=== PATIENT | male | born 1960 | race Caucasian/White ===

== ENCOUNTER → 2017-06-11 | Day surgery (SDC) | payer OTHER ==
[~2017-06-11] VITALS: Ht 175.3 cm; Wt 74.8 kg
[~2017-06-11] MED LIST: ASPIRIN EC81 M1 PO; ATORVASTATIN CA40 MG PO; ECOTRIN81 MG PO; FINASTERIDE5 M1 PO; FISH OIL 1,0001 EAC3 PO; FLOMAX0.4 M1 PO; GABAPENTIN300 M2 PO; GLUCOPHAGE1000 M1 PO; HUMALOG100 UNIT/1 SC; JANUMET 1000 MG1 TAB PO; JANUVIA100 M1 PO; LANTUS SOL100 UNIT/1 SC; LANTUS SOLOS100 U/ML SC; LIPITOR80 M1 PO; LISINOPRIL2.5 MG PO; NEURONTIN300 MG PO; NOVOLOG100 U/ML SC; PROS5 PO; TAMSULOSIN HYD0.4 MG PO; TOPROL XL50 M1 PO
--- NOTE | 2017-06-11 13:07 | Operative Report ---
Operative/Inv Procedure Report Surgery Date: 06/11/17 Name of Procedure: Cataract extraction with intraocular lens implantation left eye Pre-Operative Diagnosis: Age-related cataract left eye Post-Operative Diagnosis: Same Estimated Blood Loss: none Surgeon/Application Architect: Eder ALVES,Cristino Thorne Anesthesia: local monitored anesthesi Complications: None Operative/Procedure Note Note: Preoperatively the patient was noted to have 20/50 vision in the left eye . The risks, benefits, and alternatives to surgery were discussed at length with the patient. Informed consent was obtained. The patient was brought to the operating room where the left eye was prepped and draped in the normal sterile fashion. A speculum was placed on the left eye with good exposure. The axis of the limbal relaxing incision was marked. Using a wendy blade at 600 depth, an incision spanning 45 degrees was made without complication. A limbal relaxing incision of equal length and depth was made 180 away. A stab incision was made using a paracentesis blade. Intracameral lidocaine was placed. Viscoelastic was used to form the anterior chamber. A clear corneal incision was made using keratome blade. A continuous curvilinear capsulorrhexis was made using a cystotome needle followed by Utrata forceps. There was no extension of the rhexis. Hydrodissection was performed using balanced salt solution. The cataract was removed using a stop and chop technique. Residual cortex was removed using coaxial irrigation and aspiration. The capsule was polished using irrigation and aspiration and the posterior capsule was cleaned using a balanced salt solution jet. There was no residual lens material inside the eye. The capsular bag was reformed using viscoelastic. An intraocular lens [id number] of power 16.0 was verified and confirmed. It was loaded into an injector and injected into the eye. The lens was placed entirely within the capsular bag. Viscoelastic was evacuated using irrigation and aspiration. The wounds were stromally hydrated and the eye filled to physiologic pressure using balanced salt solution. Intracameral cefuroxime was placed. Speculum was removed and a shield was placed on the eye. The patient was brought to the recovery area without incident. Instructions were given to follow-up the next day for routine postoperative care.
== END ==
LOC: STS 04:06
DX: H25.9 Unspecified age-related cataract (principal); E11.9 Type 2 diabetes mellitus without complications; Z79.4 Long term (current) use of insulin; I10 Essential (primary) hypertension; I25.2 Old myocardial infarction
CPT/HCPCS: J2250; V2632

== ENCOUNTER → 2017-07-29 | Day surgery (SDC) | payer OTHER ==
--- NOTE | 2017-07-29 11:57 | Operative Report ---
Operative/Inv Procedure Report Surgery Date: 07/29/17 Name of Procedure: Cataract extraction with intraocular lens implantation right eye Pre-Operative Diagnosis: Age-related cataract right eye Post-Operative Diagnosis: Same Estimated Blood Loss: none Surgeon/Venetian Blind Cleaner: Eder ALVES,Cristino Thorne Anesthesia: local monitored anesthesi Complications: None Operative/Procedure Note Note: Preoperatively the patient was noted to have 20/20 vision in the right eye with a decrease with glare testing down to 20/60. The risks, benefits, and alternatives to surgery were discussed at length with the patient. Informed consent was obtained. The patient was brought to the operating room where the right eye was prepped and draped in the normal sterile fashion. A speculum was placed on the right eye with good exposure. A stab incision was made using a paracentesis blade. Intracameral lidocaine was placed. Viscoelastic was used to form the anterior chamber. A clear corneal incision was made using keratome blade. A continuous curvilinear capsulorrhexis was made using a cystotome needle followed by Utrata forceps. There was no extension of the rhexis. Hydrodissection was performed using balanced salt solution. The cataract was removed using a stop and chop technique. Residual cortex was removed using coaxial irrigation and aspiration. The capsule was polished using irrigation and aspiration and the posterior capsule was cleaned using a balanced salt solution jet. There was no residual lens material inside the eye. The capsular bag was reformed using viscoelastic. An intraocular lens SA60WF of power 18.5 was verified and confirmed. It was loaded into an injector and injected into the eye. The lens was placed entirely within the capsular bag. Viscoelastic was evacuated using irrigation and aspiration. The wounds were stromally hydrated and the eye filled to physiologic pressure using balanced salt solution. Intracameral cefuroxime was placed. Speculum was removed and a shield was placed on the eye. The patient was brought to the recovery area without incident. Instructions were given to follow-up the next day for routine postoperative care.
== END ==
LOC: STS 03:37
DX: H25.9 Unspecified age-related cataract (principal); I10 Essential (primary) hypertension; I25.2 Old myocardial infarction; E11.9 Type 2 diabetes mellitus without complications; Z79.4 Long term (current) use of insulin
CPT/HCPCS: J2250; V2632

== ENCOUNTER 2017-10-28 03:32 | Inpatient (IN) | payer OTHER ==
[~2017-10-28] VITALS: Ht 175.3 cm; Wt 76.2 kg
--- NOTE | 2017-10-28 03:54 | ED GI/GU/ABDOMINAL COMPLAINT ---
History of Present Illness General Chief Complaint: Male Genitourinary Problems Stated Complaint: URINATING BLOOD Source: patient, old records Exam Limitations: no limitations Vital Signs & Intake/Output Vital Signs & Intake/Output Vital Signs Date Time Temp Pulse Resp B/P B/P Pulse O2 O2 Flow FiO2 Mean Ox Delivery Rate 10/28 0520 97.2 79 18 128/67 97 Room Air 10/28 0348 97.6 92 20 198/100 97 Room Air 10/28 0337 Room Air Allergies Coded Allergies: Penicillins (HIVES 10/28/17) Reconcile Medications Aspirin (Ecotrin*) 81 MG TABLET.DR 1 TAB PO DAILY HEART/BLOOD (Reported) Atorvastatin Calcium (Lipitor) 80 MG TABLET 1 TAB PO DAILY CHOLESTEROL ( Reported) Finasteride 5 MG TABLET 1 TAB PO DAILY PROSTATE (Reported) Gabapentin 300 MG CAPSULE 1 CAP PO BID NERVE PAIN (Reported) Insulin Glargine,Hum.rec.anlog (Lantus Solostar) 100 UNIT/ML (3 ML) INSULN.PEN 25 UNIT SC QHS DM (Reported) Insulin Lispro (Humalog) 100 UNIT/ML CARTRIDGE DM (Reported) Metformin HCl (Glucophage) 1,000 MG TABLET 1 TAB PO DAILY DM (Reported) Metoprolol Succ XL (Toprol Xl) 50 MG TAB 1 TAB PO DAILY HEART (Reported) [place]-3/Dha/Epa/Fish Oil (Fish Oil 1,000 MG Softgel) 250 MG-500 MG-1,000 MG CAPSULE 1 SGL PO DAILY SUPPLEMENT (Reported) Sitagliptin Phosphate (Januvia) 100 MG TABLET 1 TAB PO DAILY DM (Reported) Tamsulosin HCl (Flomax) 0.4 MG CAP.ER.24H 1 CAP PO DAILY PROSTATE (Reported) Triage Note: TRIAGE: PATIENT TO ER FROM HOME REPORTING URINATING BLOOD SINCE , NOW HAVING ABDOMINAL PAIN AND INCREASED THIRST "THINK I'M DEHYDRATED." WAS PRESCRIBED ABX, "TOOK TWO DOSES AND STOPPED TAKING THEM D/T CONTINUED SYMPTOMS." CALLED NOMAN MCNAIR MADE FOR THURSDAY. Triage Nurses Notes Reviewed? yes HPI: Patient has been having intermittent hematuria since September. Patient was diagnosed with a yeast infection. Patient is currently urinating clots. Patient is unable to void since 1 AM. Patient is now very uncomfortable with suprapubic pressure. There is no nausea or vomiting. The pressure is constant. There are no aggravating or mitigating factors. There is no radiation. He rates it as 8 out of 10. Past History Travel History Traveled to [place] past 21 day No Medical History Any Pertinent Medical History? 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 No Review of Systems Review of Systems Constitutional: Reports: no symptoms. EENTM: Reports: no symptoms. Respiratory: Reports: no symptoms. Cardiovascular: Reports: no symptoms. GI: Reports: see HPI, abdominal pain. Genitourinary: Reports: see HPI, hematuria. Musculoskeletal: Reports: no symptoms. Skin: Reports: no symptoms. Neurological/Psychological: Reports: no symptoms. Hematologic/Endocrine: Reports: no symptoms. Immunologic/Allergic: Reports: no symptoms. All Other Systems: Reviewed and Negative Physical Exam Physical Exam General Appearance: well developed/nourished, alert, awake, anxious, moderate distress Head: atraumatic, normal appearance Eyes: Bilateral: PERRL, EOMI. Ears, Nose, Throat, Mouth: hearing grossly normal, moist mucous membrane Neck: normal inspection, supple, full range of motion Respiratory: normal breath sounds, chest non-tender, no respiratory distress, lungs clear Cardiovascular: regular rate/rhythm, normal peripheral pulses Gastrointestinal: normal bowel sounds, soft, tenderness Back: normal inspection, normal range of motion Extremities: normal range of motion Neurologic/Psych: no motor/sensory deficits, awake, alert, oriented x 3, normal mood/affect Skin: diaphoresis Core Measures ACS in differential dx? No Sepsis Present: No Sepsis Focused Exam Completed? No Progress Differential Diagnosis: urinary retention, UTI/pyelo Plan of Care: Orders Procedure Date/time Status Heart Healthy Diet 10/28 B Active ED Holding Orders 10/28 644 Active Admit to inpatient 10/28 644 Active Vital Signs 10/28 644 Active Code Status 10/28 644 Active Continuous Bladder Irrigation 10/28 622 Active Kaur, Insertion/Removal/Asses 10/28 035 Active COMPREHENSIVE METABOLIC PANEL 10/28 035 Complete CBC WITHOUT DIFFERENTIAL 10/28 350 Complete CULTURE,URINE 10/28 0338 Active URINALYSIS 10/28 337 Complete Current Medications Sig/Emily Start time Last Medication Dose Stop Time Status Admin Sodium Chloride 1,000 ML BOLUS ONE 10/28 06 AC 10/28 (Normal Saline 0.9%) 10/28 0659 0615 Laboratory Tests 10/28/17 0510: Anion Gap 13, Estimated GFR > 60, BUN/Creatinine Ratio 31.8 H, Glucose 405 H, Calcium 9.4, Total Bilirubin 0.6, AST 26, ALT 38, Alkaline Phosphatase 75, Total Protein 6.5, Albumin 3.6, Globulin 2.9, Albumin/Globulin Ratio 1.2, CBC w Diff NO MAN DIFF REQ, RBC 3.79 L, MCV 84.5, MCH 28.4, MCHC 33.6, RDW 13.0, MPV 7.7, Gran % 85.2 H, Lymphocytes % 8.6 L, Monocytes % 5.8, Eosinophils % 0.2, Basophils % 0.2, Absolute Granulocytes 7.2 H, Absolute Lymphocytes 0.7 L, Absolute Monocytes 0.5, Absolute Eosinophils 0, Absolute Basophils 0 10/28/17 0341: Urine Color BLDY H, Urine Clarity TURBD H, Urine pH 7.5, Ur Specific [place] 1.020, Urine Protein >=300 H, Urine Ketones TRACE H, Urine Nitrite POS H, Urine Bilirubin NEG@ICTO, Urine Urobilinogen 1.0, Ur Leukocyte Esterase MOD H, Ur Microscopic SEDIMENT EXAMINED, Urine RBC PACKD H, Urine WBC 3-5 H, Urine Bacteria MANY H, Urine Hemoglobin LARGE H, Urine Glucose 250 H Microbiology 10/28 034 URINE ROUT: Urine Culture - RECD Initial ED EKG: none Comments: The catheter was placed and one blood clot came out however after that the urine is flowing freely with bloody urine. Multiple additional blood clots noted. Discussed with Dr. STRAUSS, start CBI, start IV antibiotics, treat for the hyperglycemia, admit to medicine with urology consultation. Departure Departure Disposition: STILL A PATIENT Condition: Stable Clinical Impression Primary Impression: Hematuria Secondary Impressions: Hyperglycemia, UTI (urinary tract infection) Referrals: Jac CADET,Lamar Robles (PCP/Family) Departure Forms: Customer Survey General Discharge Information Admission Note Spoke With: Roberth Ghosh MD Documentation of Exam: Documentation of any treatments & extenuating circumstances including Concerns Regarding Discharge (functional status, medication knowledge or non-compliance, living conditions, etc.) that warrant an admission rather than observation: [IV antibiotics, IV fluids, subcutaneous insulin, CBI, urology consultation]
[2017-10-28 05:33] LABS: ABSOLUTE BASOPHIL COUNT 0 /CUMM (0.0-0.2); ABSOLUTE EOSINOPHIL COUNT 0 /CUMM (0.0-0.7); ABSOLUTE GRANULOCYTE CT 7.2 /CUMM (1.4-6.5); ABSOLUTE LYMPH COUNT 0.7 /CUMM (1.2-3.4); ABSOLUTE MONOCYTE COUNT 0.5 /CUMM (0.10-0.60); BASOPHIL % 0.2 % (0.0-2.0); EOSINOPHIL % 0.2 % (0-5); GRANULOCYTE % 85.2 % (42.2-75.2); MEAN CORPUSCULAR HGB 28.4 PG (27.0-31.0); MEAN CORPUSCULAR HGB CONC 33.6 G/DL (33.0-37.0); MEAN CORPUSCULAR VOLUME 84.5 FL (80.0-94.0); MEAN PLATELET VOLUME 7.7 FL (7.4-10.4); PLATELET COUNT 228 /CUMM (130-400); RED BLOOD CELL CT 3.79 /CUMM (4.70-6.10); WHITE BLOOD CELL COUNT 8.4 /CUMM (4.8-10.8)
--- NOTE | 2017-10-28 07:42 | History & Physical ---
Farhad ALVES,[facility] 10/28/17 0737: General Information and HPI MD Statement: I have seen and personally examined MERLY HUGHES and documented this H&P. The patient is a 57 year old M who presented with a patient stated chief complaint of urinary retention and dehydration. Source of Information: patient, old records Exam Limitations: no limitations History of Present Illness: This is a pleasant 57-year-old male with past medical history of CAD (s/p CABG in 2013), diabetes, BPH Urinary rentention in 2013, requiring a suprapubic tube) , hyperlipidemia, hypertension who presented to the emergency department on 10/28 complaining of urinary retention, abdominal pain and hematuria. He initially began having urinary sympotms around . Patient reports approximately 2 weeks ago he was given a diagnosis of a UTI and started on ciprofloxacin which he took for 7 days. He reports he had only slight relief and a urinary culture showed evidence of growth of yeast. He was prescribed diflucan which he took for 2 days. Patient states that this medication did have better symptom control. On Thursday10/23/2017 patient noted some hematuria and over the course the weekend he also began to feel increased urinary frequency. He was started on a second dose of ciprofloxacin on Thursday 10/26 and states he took 2 days of this antibiotic. Yesterday prior to admission he call the office of urologist Dr. Livingston and due to ongoing symptoms of urinary retention and worsening abdominal pain as well as a passing of blood clots he was prompted to come to the emergency department. At the time of presentation patint noted a 5 out of 10 intermittent abdominal pain. Desrcibed as a pressure-like pain located in the suprapubic area. States that he had exert significant pressure and force to void. The patient denies any urethral discharge. Denies any fever, chills, nausea, vomiting. He states he is well compliant on his medications although has not had a follow-up with a primary care physician and over 2 years. He is looking for a new primary care physician. Patient's primary care physician is Lamar Shell. Patient's urologist is Dr. Livingston. Patient's grinder setup operator is Dr Wilburn . He is currently going cardiac rehabilitation. Allergies/Medications Allergies: Coded Allergies: Penicillins (HIVES 10/28/17) Home Med list Aspirin (Ecotrin*) 81 MG TABLET.DR 1 TAB PO DAILY HEART/BLOOD (Reported) Atorvastatin Calcium (Lipitor) 80 MG TABLET 1 TAB PO DAILY CHOLESTEROL ( Reported) Finasteride 5 MG TABLET 1 TAB PO DAILY PROSTATE (Reported) Gabapentin 300 MG CAPSULE 1 CAP PO BID NERVE PAIN (Reported) Insulin Glargine,Hum.rec.anlog (Lantus Solostar) 100 UNIT/ML (3 ML) INSULN.PEN 25 UNIT SC QHS DM (Reported) Insulin Lispro (Humalog Kwikpen U-100) (Unknown Strength) INSULN.PEN (Unknown Dose) SC TIDAC DIABETES (Reported) Metformin HCl (Glucophage) 1,000 MG TABLET 1 TAB PO DAILY DM (Reported) Metoprolol Succ XL (Toprol Xl) 50 MG TAB 1 TAB PO DAILY HEART (Reported) [place]-3/Dha/Epa/Fish Oil (Fish Oil 1,000 MG Softgel) 250 MG-500 MG-1,000 MG CAPSULE 1 SGL PO DAILY SUPPLEMENT (Reported) Sitagliptin Phosphate (Januvia) 100 MG TABLET 1 TAB PO DAILY DM (Reported) Tamsulosin HCl (Flomax) 0.4 MG CAP.ER.24H 1 CAP PO DAILY PROSTATE (Reported) Compliance With Home Meds: UNKNOWN Past History Travel History Traveled to [place] past 21 day No Medical History Neurological: NONE EENT: NONE Cardiovascular: hypertension, hyperlipidemia Respiratory: NONE Gastrointestinal: GASTROPARESIS Hepatic: NONE Renal: NONE Musculoskeletal: NEUROPATHY Psychiatric: NONE Endocrine: diabetes Blood Disorders: NONE Cancer(s): NONE 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 Home Who Do You Live With? self Services at Home: None Primary Language: [place] Smoking Status: Never Smoked ETOH Use: denies use Illicit Drug Use: denies illicit drug use Functional Ability ADLs Independent: dressing, eating, toileting, bathing. Ambulation: independent IADLs Independent: shopping, housework, finances, food prep, telephone, transportation , medication admin. 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 Exam & Diagnostic Data Last 24 Hrs of Vital Signs/I&O Vital Signs Date Time Temp Pulse Resp B/P B/P Pulse O2 O2 Flow FiO2 Mean Ox Delivery Rate 10/28 0733 98.4 78 18 139/78 96 Room Air 10/28 0520 97.2 79 18 128/67 97 Room Air 10/28 0348 97.6 92 20 198/100 97 Room Air 10/28 0337 Room Air Intake & Output 10/28 0800 10/28 0000 10/27 1600 Intake Total Output Total 2600 Balance -2600 Output, Urine 2600 Patient 76.204 kg Weight Weight Reported by Patient Measurement Method Physical Exam General Appearance Alert, Oriented X3, Cooperative Skin No Rashes HEENT Mucous Membranes Dry Cardiovascular Regular Rate, Normal S1, Normal S2, Surgical Scar Noted Lungs Clear to Auscultation Abdomen Normal Bowel Sounds, Soft, No Tenderness Neurological Strength at 5/5 X4 Ext, Normal Tone, Sensation Intact, Cranial Nerves 3-12 NL Extremities No Edema, Normal Pulses, No Tenderness/Swelling Reproductive (MALE) Catheter in Place. CBI on going. Last 24 Hrs of Labs/Az: Laboratory Tests 10/28/17 0510: Anion Gap 13, Estimated GFR > 60, BUN/Creatinine Ratio 31.8 H, Glucose 405 H, Calcium 9.4, Total Bilirubin 0.6, AST 26, ALT 38, Alkaline Phosphatase 75, Total Protein 6.5, Albumin 3.6, Globulin 2.9, Albumin/Globulin Ratio 1.2, CBC w Diff NO MAN DIFF REQ, RBC 3.79 L, MCV 84.5, MCH 28.4, MCHC 33.6, RDW 13.0, MPV 7.7, Gran % 85.2 H, Lymphocytes % 8.6 L, Monocytes % 5.8, Eosinophils % 0.2, Basophils % 0.2, Absolute Granulocytes 7.2 H, Absolute Lymphocytes 0.7 L, Absolute Monocytes 0.5, Absolute Eosinophils 0, Absolute Basophils 0 10/28/17 0341: Urine Color BLDY H, Urine Clarity TURBD H, Urine pH 7.5, Ur Specific [place] 1.020, Urine Protein >=300 H, Urine Ketones TRACE H, Urine Nitrite POS H, Urine Bilirubin NEG@ICTO, Urine Urobilinogen 1.0, Ur Leukocyte Esterase MOD H, Ur Microscopic SEDIMENT EXAMINED, Urine RBC PACKD H, Urine WBC 3-5 H, Urine Bacteria MANY H, Urine Hemoglobin LARGE H, Urine Glucose 250 H Microbiology 10/28 0341 URINE ROUT: Urine Culture - RECD Assessment/Plan Assessment: This is a pleasant 57-year-old male with past medical history of CAD (s/p CABG in 2013), diabetes, BPH, hyperlipidemia, hypertension who presented to the emergency department on 10/28/2017 complaining of urinary retention, abdominal pain and hematuria Obstructive Uropathy Gross Hematuria History of BPH History of diabetes and hyperglycemia on admission Recurrent UTI Diabetic Neuropathy Hyponatremia on labs Admit patient to general medicine H&H every 12 for the next 24 hours and ensure hematocrit above 24. Obtain formal urologic consultation. Continue CBI for now. Gently hydrate the patient with normal saline running at 75 mL per hour to ensure complications from post overdiuresis does not occur. Continue ceftriaxone for now. 1000 mg Q 24 hours. May narrow antibiotics once culture becomes available. Monitor ins and outs. Deferred to urology what imaging study is required for evaluation for patient's symptoms. If patient fails to improve in the next 48 hours consider cystoscopy alternatively can be considered as an outpatient. PSA. Cover the patient with insulin sliding scale. Levemir 24 units daily. 12 BID. If sugars remain above 180 consistently may consider endocrinology consultation. Hemoglobin A1c. Hyponatremia when corrected for hyperglycemia is 137. Monitor a CBC and BEP on 10/21/2017. Diet consistent carbohydrate diet. For DVT prophylaxis will maintain the patient on Alps. Patient is a full code. As Ranked By This Provider Problem List: 1. UTI (urinary tract infection) 2. Hyperglycemia 3. HTN (hypertension) 4. HLD (hyperlipidemia) Core Measures/Misc (01/18) Acute Coronary Syndrome ACS Diagnosis: No Congestive Heart Failure Congestive Heart Failure Diagnosis No Cerebrovascular Accident CVA/TIA Diagnosis: No VTE (View Protocol) VTE Risk Factors Age>40 No Mechanical VTE Prophylaxis d/t N/A MechProphylax Ordered No VTE Pharm Prophylaxis d/t Bleeding (Active) Comment: Hematuria Sepsis (View protocol) Sepsis Present: No If YES complete Sepsis Event Note If YES complete Sepsis Event Note Jemal Medina MD 10/28/17 1107: Core Measures/Misc (01/18) Sepsis (View protocol) If YES complete Sepsis Event Note If YES complete Sepsis Event Note Attending MD Review Statement Attending Statement Attending MD Statement: examined this patient, discuss w/resident/PA/GLASS DECORATOR, agreed w/resident/PA/GLASS DECORATOR, reviewed EMR data (avail), amended to note Attending Assessment/Plan: The patient is a 57 yo male with h/o CAD (s/p CABG 2013), DM2 with neuropathy/ gastroparesis, HL, HTN, & BPH (prior prolonged indwelling stephens, followed by suprapubic catheter placement in 2013- obstruction resolved on meds alone- finasteride/tamsulosin) who presented with urinary bleeding/obstruction/clots. Urinary symptoms began approximately 2 weeks ago. He was diagnosed with a UTI and received Cipro x 7 days. Symptoms did not change on Cipro. On 10/23 he noted hematuria and subsequent urinary frequency. He later developed suprapubic/ abdominal pain and was having difficulty voiding. Dr. Livingston suggested admission for continuous bladder irrigation. Physical Exam: VS: T 98.4, P 78, R 18, BP 139/78, PO 96% RA HEENT: eyes- PERRLA, EOMI winnie- no lesions, moist mucosa Neck: no JVD/bruits Chest: clear, sternotomy scar well-healed Cor: RRR nl S1, S2 w/o murm Abd: BS+, soft, NT, - HSM Ext: no edema, pulses 2+ Neuro: alert & oriented x 3, non-focal exam, ? sl decreased sensory LE per patient Labs/Tests- as above Impression/Plan: #Obstructive Uropathy/Hematuria- patient presents with obstructive symptoms. Has h/o BPH and no surgical Rx (only pharmacologic). Now with continuous bladder irrigation. Unclear if obstruction was being caused by clots vs. BPH worsening? ? UTI. Plan: Admit to general medical floor. Urology consult- Dr. Ness (done). Continuous bladder irrigation as per Urology. Follow hematuria and H/H. Continue tamsulosin/finasteride. CT Urogram (hold Metformin). Will need eventual cystoscopy. Check urine culture (was on Cipro). #Dysuria- had urinary symptoms that may be related to obstruction rather than infection. Plan: Check urine culture and prior results (had yeast 10/01 CC 10,000). Ceftriaxone 1 g q24 hours as per Urology (check outside cultures if any) . #CAD/HTN/HL- all stable on meds. S/P CABG in 2013. Plan: Continue Metoprolol, Atorvastatin, hold ASA due to bleeding. #DM2- on insulin, Metformin, & Sitagliptin. Will be seeing endocrinology now ( new endo with Dr. Radford). Plan: Hold oral agents and continue glargine and sliding scale coverage. #Diabetic Neuropathy- has been stable. Plan: Continue Gabapentin.
--- NOTE | 2017-10-28 08:03 | Cons- Urology ---
General Information and HPI Consulting Request Date of Consult: 10/28/17 Requested By: Roberth Ghosh MD Reason for Consult: gross hematuria Source of Information: patient, old records Exam Limitations: no limitations History of Present Illness: This patient has a hx of BPH and in 2013 had urinary retention. He was difficult to catheterize so a suprapubic tube was placed by Dr [place]. He was started on tamsulosin and finasteride and began voiding spontaneously. The suprapubic tube was removed and he continues on his BPH meds. I last saw him about 2 years ago and he was doing well. He has been seen in our office by our PA a couple times in the last month for intermittent gross hematuria. On the first visit he was found to have a bacterial UTI which was treated. At the 2nd visit a low colony count of pushpa was seen in the urine and he was treated with diflucan. Last night he developed gross hematuria with clots and urinary retention and presented to the ER. A stephens was placed and some clots drained. He was started on CBI which continues to run. His U/A is packed with rbc's and is also positive for nitrites and leukocyte esterase. He has never been a smoker Allergies/Medications Allergies: Coded Allergies: Penicillins (HIVES 10/28/17) Home Med List: Aspirin (Ecotrin*) 81 MG TABLET.DR 1 TAB PO DAILY HEART/BLOOD (Reported) Atorvastatin Calcium (Lipitor) 80 MG TABLET 1 TAB PO DAILY CHOLESTEROL ( Reported) Finasteride 5 MG TABLET 1 TAB PO DAILY PROSTATE (Reported) Gabapentin 300 MG CAPSULE 1 CAP PO BID NERVE PAIN (Reported) Insulin Glargine,Hum.rec.anlog (Lantus Solostar) 100 UNIT/ML (3 ML) INSULN.PEN 25 UNIT SC QHS DM (Reported) Insulin Lispro (Humalog) 100 UNIT/ML CARTRIDGE DM (Reported) Metformin HCl (Glucophage) 1,000 MG TABLET 1 TAB PO DAILY DM (Reported) Metoprolol Succ XL (Toprol Xl) 50 MG TAB 1 TAB PO DAILY HEART (Reported) Doswell-3/Dha/Epa/Fish Oil (Fish Oil 1,000 MG Softgel) 250 MG-500 MG-1,000 MG CAPSULE 1 SGL PO DAILY SUPPLEMENT (Reported) Sitagliptin Phosphate (Januvia) 100 MG TABLET 1 TAB PO DAILY DM (Reported) Tamsulosin HCl (Flomax) 0.4 MG CAP.ER.24H 1 CAP PO DAILY PROSTATE (Reported) Current Medications: Current Medications Sig/Emily Start time Last Medication Dose Route Stop Time Status Admin Ceftriaxone Sodium 0 .STK-MED ONE 10/28 0635 DC .ROUTE Ceftriaxone Sodium 1,000 MG ONCE ONE 10/28 0630 DC 10/28 IV 10/28 0631 0640 Insulin Human Regular 16 UNITS ONCE ONE 10/28 0600 DC 10/28 SC 10/28 0601 0611 Lidocaine 0 .STK-MED ONE 10/28 0657 DC PO Lidocaine 15 ML ONCE ONE 10/28 0445 DC 10/28 PO 10/28 0446 0525 Sodium Chloride 1,000 ML BOLUS ONE 10/28 0600 DC 10/28 IV 10/28 0659 0615 Sodium Chloride 1,000 ML BOLUS ONE 10/28 0400 DC 10/28 IV 10/28 0459 0525 Past History Medical History Neurological: NONE EENT: NONE Cardiovascular: hypertension, hyperlipidemia Respiratory: NONE Gastrointestinal: GASTROPARESIS Hepatic: NONE Renal: NONE Musculoskeletal: NEUROPATHY Psychiatric: NONE Endocrine: diabetes Blood Disorders: NONE Cancer(s): NONE 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 Surgical History Pertinent Surgical History: non-contributory Family History Relations & Conditions If Any: FATHER FH: diabetes mellitus grandfather FH: leukemia grandmother Colitis Psychosocial History Services at Home: None ETOH Use: denies use Illicit Drug Use: denies illicit drug use Exam & Diagnostic Data Vital Signs and I&O Vital Signs Date Time Temp Pulse Resp B/P B/P Pulse O2 O2 Flow FiO2 Mean Ox Delivery Rate 10/28 0733 98.4 78 18 139/78 96 Room Air 10/28 0520 97.2 79 18 128/67 97 Room Air 10/28 0348 97.6 92 20 198/100 97 Room Air 10/28 0337 Room Air Intake & Output 10/28 0800 10/28 0000 10/27 1600 10/27 0800 10/27 0000 10/26 1600 Intake Total Output Total 2600 Balance -2600 Output, Urine 2600 Patient 168 lb Weight Weight Reported by Patient Measurement Method No acute distress Back: no CVA tenderness Abd: old supra pubic tube scar present and well healed. Soft and non tender. Bladder not palpable Genitalia: Normal male. 3-way stephens in place with CBI running at rapid rate with pink drainage Laboratory Tests 10/28 10/28 0510 0341 Chemistry Sodium (137 - 145 mmol/L) 130 L Potassium (3.5 - 5.1 mmol/L) 4.6 Chloride (98 - 107 mmol/L) 96 L Carbon Dioxide (22 - 30 mmol/L) 21 L Anion Gap (5 - 16) 13 BUN (9 - 20 mg/dL) 35 H Creatinine (0.7 - 1.2 mg/dL) 1.1 Estimated GFR (>60 ml/min) > 60 BUN/Creatinine Ratio (7 - 25 %) 31.8 H Glucose (65 - 99 mg/dL) 405 H Calcium (8.4 - 10.2 mg/dL) 9.4 Total Bilirubin (0.2 - 1.3 mg/dL) 0.6 AST (17 - 59 U/L) 26 ALT (21 - 72 U/L) 38 Alkaline Phosphatase (< 127 U/L) 75 Total Protein (6.3 - 8.2 g/dL) 6.5 Albumin (3.5 - 5.0 g/dL) 3.6 Globulin (1.9 - 4.2 gm/dL) 2.9 Albumin/Globulin Ratio (1.1 - 2.2 %) 1.2 Hematology CBC w Diff NO MAN DIFF REQ WBC (4.8 - 10.8 /CUMM) 8.4 RBC (4.70 - 6.10 /CUMM) 3.79 L Hgb (14.0 - 18.0 G/DL) 10.7 L Hct (42 - 52 %) 32.0 L MCV (80.0 - 94.0 FL) 84.5 MCH (27.0 - 31.0 PG) 28.4 MCHC (33.0 - 37.0 G/DL) 33.6 RDW (11.5 - 14.5 %) 13.0 Plt Count (130 - 400 /CUMM) 228 MPV (7.4 - 10.4 FL) 7.7 Gran % (42.2 - 75.2 %) 85.2 H Lymphocytes % (20.5 - 51.1 %) 8.6 L Monocytes % (1.7 - 9.3 %) 5.8 Eosinophils % (0 - 5 %) 0.2 Basophils % (0.0 - 2.0 %) 0.2 Absolute Granulocytes (1.4 - 6.5 /CUMM) 7.2 H Absolute Lymphocytes (1.2 - 3.4 /CUMM) 0.7 L Absolute Monocytes (0.10 - 0.60 /CUMM) 0.5 Absolute Eosinophils (0.0 - 0.7 /CUMM) 0 Absolute Basophils (0.0 - 0.2 /CUMM) 0 Urines Urine Color (YEL,AMB,STR) BLDY H Urine Clarity (CLEAR) TURBD H Urine pH (5.0 - 8.0) 7.5 Ur Specific [place] (1.001 - 1.035) 1.020 Urine Protein (NEG,<30 MG/DL) >=300 H Urine Ketones (NEG) TRACE H Urine Nitrite (NEG) POS H Urine Bilirubin (NEG) NEG@ICTO Urine Urobilinogen (0.1 - 1.0 EU/dl) 1.0 Ur Leukocyte Esterase (NEG) MOD H Ur Microscopic SEDIMENT EXAMINED Urine RBC (0 - 5 /HPF) PACKD H Urine WBC (0 - 2 /HPF) 3-5 H Urine Bacteria (NEG/NONE) MANY H Urine Hemoglobin (NEG) LARGE H Urine Glucose (N MG/DL) 250 H Assessment/Plan Assessment/Plan Imp: 1. Gross hematuri, likely infection-related. However can not r/o other causes 2. Hx of BPH 3. Recurrent UTI 4. DM 5. CAD, s/p MN and CABG Plan: 1. Bladder manually irrigated and further clots removed 2. Continue CBI 3. Agree with ceftriaxone 4. Management of DM 5. Hold ASA 6. When serum glucose is well controlled he should have CT urogram as part of evaluation for gross hematuri and recurrent UTI 7. Will eventually need cystoscopy either in hospital or in office after discharge. 8. I will be out of town for the day returning around 6 PM. If any further assistance needed during day today call office at [phone] Consult Acknowledgment - Thank you for your consult request.
[2017-10-28] MEDS ORDERED: NOVOLOG FL100 UNIT/1 SC (08:11)
[2017-10-28] MEDS ORDERED: HUMALOG KW100 UNIT/1 SC (08:14)
[2017-10-28 09:18] VITALS: BP 128/60
--- NOTE | 2017-10-28 11:41 | Admission Certification ---
Admission Certification Certification Statement - As attending physician, I certify that at the time of - admission, based on clinical presentation, severity of - symptoms, need for further diagnostic testing and - therapeutic interventions, and risk of adverse outcomes - without in-hospital treatment, in my clinical assessment, - this patient requires an acute hospital stay for a minimum - of two nights or longer. I have also considered psychsocial - factors such as support system, advanced age, financial - issues, cognitive issues, and failed out-patient treatments, - past re-admission history, safety of patient, and lack of - compliance as applicable. Specific rationale supporting this admission is: The patient presents with gross hematuria, urinary clots, and urinary obstruction/?UTI. Needs admission for continuous bladder irrigation, urology evaluation. JOHNY Daley, Urology consult Dr. Livingston, CT urogram. Probable cystoscopy.
--- NOTE | 2017-10-28 15:44 | CT SCAN REPORT ---
EXAMINATION: CT ABDOMEN AND PELVIS WITHOUT AND WITH CONTRAST CLINICAL INFORMATION: Gross hematuria. Recurrent urinary tract infections. COMPARISON: 07/15/2013 TECHNIQUE: Multidetector volumetric imaging was performed through the abdomen prior to IV contrast. The abdomen and pelvis were then reexamined after the administration of 94 mL Optiray 320 intravenous contrast. Sagittal and coronal reformatted images were obtained on the technologist's workstation. DLP: 647 mGy-cm FINDINGS: LUNG BASES: No acute findings in the visualized lung bases. Atherosclerotic calcification of coronary arteries. No pericardial or pleural effusion. LIVER, GALLBLADDER, AND BILIARY TREE: Unremarkable. PANCREAS: Unremarkable. SPLEEN: Spleen is normal in size. There is focal retraction of the posterior capsule at the site of prior splenic infarction. ADRENAL GLANDS: Unremarkable. KIDNEYS AND URETERS: Kidneys are normal in size. There are two clustered, 0.2 cm calyceal stones within the lower pole of the right kidney. There are two clustered 0.2 and 0.3 cm calyceal stones in the interpolar region of the left kidney. Clustered calculi are seen in the left lower pole, in this area measuring approximately 0.6 cm. No evidence of ureterolithiasis or hydroureteronephrosis. There is symmetric contrast excretion into the collecting systems. There is no abnormal urothelial thickening of either ureter. Small, 1.2 cm simple cortical cyst in the medial aspect of the upper pole of the right kidney is unchanged compared to 07/15/2013. Also, there is an old, small 0.6 cm cortical cyst at the upper pole of the left kidney. No solid renal mass. BLADDER: The urinary bladder wall is chronically thickened. The bladder is decompressed by a Kaur catheter. There is perivesical fat stranding -- likely from cystitis. The irregular, curvilinear filling defect within the bladder lumen likely represents clot. GASTROINTESTINAL TRACT: Stomach is grossly unremarkable. Bowel loops are normal in caliber. The appendix is normal. No evidence of inflammation or obstruction along the gastrointestinal tract. There are scattered colonic diverticula without diverticulitis. No ascites or pneumoperitoneum. ABDOMINAL WALL: Unremarkable. LYMPH NODES: No pathologic sized lymph nodes in the abdomen or pelvis. VASCULAR: Mild atherosclerosis of the abdominal aorta without aneurysm. PELVIC VISCERA: Prostate gland is normal in size. OSSEOUS STRUCTURES: No suspicious bone lesions. At L5-S1, there is mild loss of disc height, apparent broad posterior disc protrusion and vacuum disc phenomenon. IMPRESSION: 1. Bilateral nephrolithiasis without ureterolithiasis or hydronephrosis. 2. Diffuse thickening of the bladder wall, perivesical fat stranding and probable clot in the bladder lumen. These findings are consistent with cystitis. 3. No evidence of pyelonephritis.
[2017-10-28 17:26] VITALS: BP 108/58
[2017-10-28 21:09] VITALS: BP 130/72
[2017-10-28 23:56] LABS: ABSOLUTE BASOPHIL COUNT 0 /CUMM (0.0-0.2); ABSOLUTE EOSINOPHIL COUNT 0.1 /CUMM (0.0-0.7); ABSOLUTE GRANULOCYTE CT 3.2 /CUMM (1.4-6.5); ABSOLUTE LYMPH COUNT 1.9 /CUMM (1.2-3.4); ABSOLUTE MONOCYTE COUNT 0.6 /CUMM (0.10-0.60); BASOPHIL % 0.4 % (0.0-2.0); EOSINOPHIL % 2.1 % (0-5); GRANULOCYTE % 55.5 % (42.2-75.2); MEAN CORPUSCULAR HGB 28.8 PG (27.0-31.0); MEAN CORPUSCULAR HGB CONC 34.1 G/DL (33.0-37.0); MEAN CORPUSCULAR VOLUME 84.4 FL (80.0-94.0); MEAN PLATELET VOLUME 7.4 FL (7.4-10.4); PLATELET COUNT 198 /CUMM (130-400); RBC DISTRIBUTION WIDTH 13.8 % (11.5-14.5); RED BLOOD CELL CT 3.15 /CUMM (4.70-6.10); WHITE BLOOD CELL COUNT 5.8 /CUMM (4.8-10.8)
[2017-10-28 23:59] LABS: HEMATOCRIT 26.6 % (42-52)
--- NOTE | 2017-10-29 07:07 | PN- Housestaff ---
See Addendum Subjective Follow-up For: Hematuria and urinary retention Subjective: Mr Butcher was seen and examined this morning. He is doing well and was able to get some rest overnight. States that he feels much better. Reports mild abdominal discomfort however much improved compared to the time of admission. Denies any fever, chills, nausea or vomiting. He has been tolerating PO intake well and states that he may have had too many carbohydrates last evening. Review of Systems Constitutional: Reports: see HPI. Objective Last 24 Hrs of Vital Signs/I&O Vital Signs Date Time Temp Pulse Resp B/P B/P Pulse O2 O2 Flow FiO2 Mean Ox Delivery Rate 10/29 0000 Room Air 10/28 2109 98.4 90 18 130/72 95 Room Air 10/28 1726 98.2 97 17 108/58 97 Room Air 10/28 1714 73 108/58 10/28 1114 128/60 10/28 0918 98.1 81 18 128/60 99 Room Air 10/28 0810 98.0 78 18 132/70 96 Room Air 10/28 0807 96 Room Air 10/28 0733 98.4 78 18 139/78 96 Room Air Intake & Output 10/29 0800 10/29 0000 10/28 1600 Intake Total 1520 6205 Output Total 1300 5750 Balance 220 455 Intake, IV 600 225 Intake, Oral 920 480 Intake, Other 5500 Number 0 Bowel Movements Output, Urine 1300 5750 Patient 76.204 kg Weight Physical Exam General Appearance: Alert, Oriented X3, Cooperative Cardiovascular: Regular Rate, Normal S1, Normal S2 Lungs: Clear to Auscultation Abdomen: Normal Bowel Sounds, Soft, No Tenderness Neurological: Strength at 5/5 X4 Ext Extremities: No Edema, Normal Pulses, No Tenderness/Swelling Vascular: Normal Pulses, Pulses Symmetrical, Kaur In place Current Medications: Current Medications Sig/Emily Start time Last Medication Dose Route Stop Time Status Admin Atorvastatin Calcium 80 MG 1700 10/28 1700 AC 10/28 PO 1714 Ceftriaxone Sodium 1,000 MG DAILY 10/29 0900 AC IV Finasteride 5 MG DAILY 10/28 1536 AC 10/28 PO 1714 Gabapentin 300 MG BID 10/28 0900 AC 10/28 PO 2129 Insulin Aspart 0 AT BEDTIME 10/28 2100 AC SC Insulin Aspart 0 TIDAC 10/28 1200 AC 10/28 SC 1924 Insulin Detemir 12 UNITS BID 10/28 0900 AC 10/28 SC 2129 Metoprolol Succinate 50 MG DAILY 10/28 0900 AC 10/28 PO 1114 Sodium Chloride 1,000 ML Q13H 10/28 0930 DC 10/28 IV 10/29 1129 2354 Tamsulosin HCl 0.4 MG DAILY 10/28 1537 AC PO Last 24 Hrs of Lab/Az Results Last 24 Hrs of Labs/Mics: Laboratory Tests 10/28/17 2330: Anion Gap 8, Estimated GFR > 60, BUN/Creatinine Ratio 28.9 H, CBC w Diff NO MAN DIFF REQ, RBC 3.15 L, MCV 84.4, MCH 28.8, MCHC 34.1, RDW 13.8, MPV 7.4, Gran % 55.5, Lymphocytes % 31.8, Monocytes % 10.2 H, Eosinophils % 2.1, Basophils % 0.4, Absolute Granulocytes 3.2, Absolute Lymphocytes 1.9, Absolute Monocytes 0.6 , Absolute Eosinophils 0.1, Absolute Basophils 0 Orders Radiology Findings: SERVICE DATE: 10/28/17- EXAM TYPE: CAT - CT ABD & PELVIS W/ & W/O IV CO EXAMINATION: CT ABDOMEN AND PELVIS WITHOUT AND WITH CONTRAST CLINICAL INFORMATION: Gross hematuria. Recurrent urinary tract infections. COMPARISON: 07/15/2013 TECHNIQUE: Multidetector volumetric imaging was performed through the abdomen prior to IV contrast. The abdomen and pelvis were then reexamined after the administration of 94 mL Optiray 320 intravenous contrast. Sagittal and coronal reformatted images were obtained on the technologist's workstation. DLP: 647 mGy-cm FINDINGS: LUNG BASES: No acute findings in the visualized lung bases. Atherosclerotic calcification of coronary arteries. No pericardial or pleural effusion. LIVER, GALLBLADDER, AND BILIARY TREE: Unremarkable. PANCREAS: Unremarkable. SPLEEN: Spleen is normal in size. There is focal retraction of the posterior capsule at the site of prior splenic infarction. ADRENAL GLANDS: Unremarkable. KIDNEYS AND URETERS: Kidneys are normal in size. There are two clustered, 0.2 cm calyceal stones within the lower pole of the right kidney. There are two clustered 0.2 and 0.3 cm calyceal stones in the interpolar region of the left kidney. Clustered calculi are seen in the left lower pole, in this area measuring approximately 0.6 cm. No evidence of ureterolithiasis or hydroureteronephrosis. There is symmetric contrast excretion into the collecting systems. There is no abnormal urothelial thickening of either ureter. Small, 1.2 cm simple cortical cyst in the medial aspect of the upper pole of the right kidney is unchanged compared to 07/15/2013. Also, there is an old, small 0.6 cm cortical cyst at the upper pole of the left kidney. No solid renal mass. BLADDER: The urinary bladder wall is chronically thickened. The bladder is decompressed by a Kaur catheter. There is perivesical fat stranding -- likely from cystitis. The irregular, curvilinear filling defect within the bladder lumen likely represents clot. GASTROINTESTINAL TRACT: Stomach is grossly unremarkable. Bowel loops are normal in caliber. The appendix is normal. No evidence of inflammation or obstruction along the gastrointestinal tract. There are scattered colonic diverticula without diverticulitis. No ascites or pneumoperitoneum. ABDOMINAL WALL: Unremarkable. LYMPH NODES: No pathologic sized lymph nodes in the abdomen or pelvis. VASCULAR: Mild atherosclerosis of the abdominal aorta without aneurysm. PELVIC VISCERA: Prostate gland is normal in size. OSSEOUS STRUCTURES: No suspicious bone lesions. At L5-S1, there is mild loss of disc height, apparent broad posterior disc protrusion and vacuum disc phenomenon. IMPRESSION: 1. Bilateral nephrolithiasis without ureterolithiasis or hydronephrosis. 2. Diffuse thickening of the bladder wall, perivesical fat stranding and probable clot in the bladder lumen. These findings are consistent with cystitis. 3. No evidence of pyelonephritis. DICTATED BY: Ziyad Gray MD Assessment/Plan Assessment: This is a pleasant 57-year-old male with past medical history of CAD (s/p CABG in 2013), diabetes, BPH, hyperlipidemia, hypertension who presented to the emergency department on 10/28/2017 complaining of urinary retention, abdominal pain and hematuria. His symptoms are likley attributed to worsening BPH, but will need to be investigated further. Acute cystitis failed outpatient therapy will need to be evaluated for causes of persistent obstructive symptoms Gross Hematuria History of BPH History of diabetes and hyperglycemia on admission Recurrent UTI Diabetic Neuropathy Continue patient on general medicine H&H Q 24 hours. Continue CBI for now, can slow rate. NPO overnight for cystoscopy in AM, based on OR time. Continue ceftriaxone for now. 1000 mg Q 24 hours. May narrow antibiotics once culture becomes available. Pending. Monitor ins and outs. Cover the patient with insulin sliding scale. FS, 138, 165, 243, may increase to high dose SS if persistently elevated. Levemir 24 units daily. 12 BID. If sugars remain above 180 consistently may consider endocrinology consultation. Hemoglobin A1c: 9.3 Monitor a CBC and BEP on 10/30/2017. Diet consistent carbohydrate diet. For DVT prophylaxis will maintain the patient on Al[place]. Patient is a full code. Problem List: 1. Hematuria 2. HTN (hypertension) Pain Ratin Pain Location: No Pain Endorsed Pain Goal: Remain pain free Pain Plan: Tylenol PRN Tomorrow's Labs & Rationales: CBC and BEP Monitor H/H in the setting of hamaturia and BEP due to electrolyte derangmenets based on fluid shifts
[2017-10-29 07:22] VITALS: BP 110/64
--- NOTE | 2017-10-29 07:27 | Patient Discharge Instructions ---
Discharge Instructions General Discharge Information You were seen/treated for: Urinary Retention Special Instructions: Please follow-up with the primary care physician within 7 days. Please follow-up with the urologist within 7 days. Please follow-up with the corrosion control fitter and in seven days, we have with provided you with a referral. Acute Coronary Syndrome Inclusion Criteria At DC or during hospital stay patient has or had the following: ACS DIAGNOSIS No Discharge Core Measures Meds if any: Prescribed or Continued at Discharge Meds if any: NOT Prescribed or Continued at Discharge Congestive Heart Failure Inclusion Criteria At DC or during hospital stay patient has or had the following: CHF DIAGNOSIS No Discharge Core Measures Meds if any: Prescribed or Continued at Discharge Meds if any: NOT Prescribed or Continued at Discharge Cerebrovascular accident Inclusion Criteria At DC or during hospital stay patient has or had the following: CVA/TIA Diagnosis No Discharge Core Measures Meds if any: Prescribed or Continued at Discharge Meds if any: NOT Prescribed or Continued at Discharge Venous thromboembolism Inclusion Criteria VTE Diagnosis No VTE Type NONE VTE Confirmed by (Test) NONE Discharge Core Measures - Per Current guidelines, there needs to be overlap - treatment for the first 5 days of Warfarin therapy. - If discharged on Warfarin prior to 5 days of - overlap therapy, the patient will need to be - assessed for post discharge needs including - *Post discharge parental anticoagulation - *Warfarin and/or parental anticoagulation education - *Follow up date to check INR post discharge At least 5 days overlap therapy as Inpatient No Meds if any: Prescribed or Continued at Discharge Note: Overlap Therapy is Warfarin and Anticoagulant Meds if any: NOT Prescribed or Continued at Discharge
--- NOTE | 2017-10-29 07:37 | PN- Urology ---
Subjective Subjective: Patient is comfortable. Required manual irrigation of stephens yesterday for clots. No problems overnight Objective Vital Signs and I&Os Vital Signs Date Time Temp Pulse Resp B/P B/P Pulse O2 O2 Flow FiO2 Mean Ox Delivery Rate 10/29 0722 98.1 77 18 110/64 96 10/29 0000 Room Air 10/28 2109 98.4 90 18 130/72 95 Room Air 10/28 1726 98.2 97 17 108/58 97 Room Air 10/28 1714 73 108/58 10/28 1114 128/60 10/28 0918 98.1 81 18 128/60 99 Room Air 10/28 0810 98.0 78 18 132/70 96 Room Air 10/28 0807 96 Room Air 10/28 0733 98.4 78 18 139/78 96 Room Air Intake & Output 10/29 0800 10/29 0000 10/28 1600 10/28 0800 10/28 0000 10/27 1600 Intake Total 1520 6205 Output Total 1300 5750 2600 Balance 220 455 -2600 Intake, IV 600 225 Intake, Oral 920 480 Intake, Other 5500 Number 0 Bowel Movements Output, Urine 1300 5750 2600 Patient 168 lb 168 lb Weight Weight Reported by Patient Measurement Method Abd: soft and non tender Genitalia: Normal male. Stephens in place. CBI running with clear drainage Laboratory Tests 10/29 10/28 0713 2330 Chemistry Sodium (137 - 145 mmol/L) Pending 141 Potassium (3.5 - 5.1 mmol/L) Pending 4.3 Chloride (98 - 107 mmol/L) Pending 108 H Carbon Dioxide (22 - 30 mmol/L) Pending 25 Anion Gap (5 - 16) Pending 8 BUN (9 - 20 mg/dL) Pending 26 H Creatinine (0.7 - 1.2 mg/dL) Pending 0.9 Estimated GFR (>60 ml/min) > 60 BUN/Creatinine Ratio (7 - 25 %) Pending 28.9 H Coagulation PT Pending INR Pending APTT Pending Hematology CBC w Diff Pending NO MAN DIFF REQ WBC (4.8 - 10.8 /CUMM) Pending 5.8 RBC (4.70 - 6.10 /CUMM) Pending 3.15 L Hgb (14.0 - 18.0 G/DL) Pending 9.1 L Hct (42 - 52 %) Pending 26.6 L MCV (80.0 - 94.0 FL) Pending 84.4 MCH (27.0 - 31.0 PG) Pending 28.8 MCHC (33.0 - 37.0 G/DL) Pending 34.1 RDW (11.5 - 14.5 %) Pending 13.8 Plt Count (130 - 400 /CUMM) Pending 198 MPV (7.4 - 10.4 FL) Pending 7.4 Gran % (42.2 - 75.2 %) 55.5 Lymphocytes % (20.5 - 51.1 %) 31.8 Monocytes % (1.7 - 9.3 %) 10.2 H Eosinophils % (0 - 5 %) 2.1 Basophils % (0.0 - 2.0 %) 0.4 Absolute Granulocytes (1.4 - 6.5 /CUMM) 3.2 Absolute Lymphocytes (1.2 - 3.4 /CUMM) 1.9 Absolute Monocytes (0.10 - 0.60 /CUMM) 0.6 Absolute Eosinophils (0.0 - 0.7 /CUMM) 0.1 Absolute Basophils (0.0 - 0.2 /CUMM) 0 CT/IVP reviewed. A few small non obstructing renal stones. Bladder thickened with some perivesical stranding c/w infection. Also filling defect in bladder, ? clot vs bladder mass Laboratory Tests 10/29 10/28 0713 2330 Chemistry Sodium (137 - 145 mmol/L) Pending 141 Potassium (3.5 - 5.1 mmol/L) Pending 4.3 Chloride (98 - 107 mmol/L) Pending 108 H Carbon Dioxide (22 - 30 mmol/L) Pending 25 Anion Gap (5 - 16) Pending 8 BUN (9 - 20 mg/dL) Pending 26 H Creatinine (0.7 - 1.2 mg/dL) Pending 0.9 Estimated GFR (>60 ml/min) > 60 BUN/Creatinine Ratio (7 - 25 %) Pending 28.9 H Coagulation PT Pending INR Pending APTT Pending Hematology CBC w Diff Pending NO MAN DIFF REQ WBC (4.8 - 10.8 /CUMM) Pending 5.8 RBC (4.70 - 6.10 /CUMM) Pending 3.15 L Hgb (14.0 - 18.0 G/DL) Pending 9.1 L Hct (42 - 52 %) Pending 26.6 L MCV (80.0 - 94.0 FL) Pending 84.4 MCH (27.0 - 31.0 PG) Pending 28.8 MCHC (33.0 - 37.0 G/DL) Pending 34.1 RDW (11.5 - 14.5 %) Pending 13.8 Plt Count (130 - 400 /CUMM) Pending 198 MPV (7.4 - 10.4 FL) Pending 7.4 Gran % (42.2 - 75.2 %) 55.5 Lymphocytes % (20.5 - 51.1 %) 31.8 Monocytes % (1.7 - 9.3 %) 10.2 H Eosinophils % (0 - 5 %) 2.1 Basophils % (0.0 - 2.0 %) 0.4 Absolute Granulocytes (1.4 - 6.5 /CUMM) 3.2 Absolute Lymphocytes (1.2 - 3.4 /CUMM) 1.9 Absolute Monocytes (0.10 - 0.60 /CUMM) 0.6 Absolute Eosinophils (0.0 - 0.7 /CUMM) 0.1 Absolute Basophils (0.0 - 0.2 /CUMM) 0 Assessment/Plan Assessment/Plan Imp: 1. Gross hematuria, ? due to UTI vs other cause. In any event it is improved today 2. Non obstructing renal stones 3. DM and CAD Plan: 1. In view of recent significant hematuria will attempt to perform cystoscopy while patient is in hospital. I will try to schedule for tomorrow for cystoscopy, TURBT or fulgeration of bleeding 2. Continue ceftriaxone 3. NPO after midnight tonight except po meds with sip 4. I do not know what time procedure will be tomorrow
[2017-10-29 07:48] LABS: ABSOLUTE BASOPHIL COUNT 0 /CUMM (0.0-0.2); ABSOLUTE EOSINOPHIL COUNT 0.2 /CUMM (0.0-0.7); ABSOLUTE GRANULOCYTE CT 2.7 /CUMM (1.4-6.5); ABSOLUTE LYMPH COUNT 1.5 /CUMM (1.2-3.4); ABSOLUTE MONOCYTE COUNT 0.5 /CUMM (0.10-0.60); BASOPHIL % 0.4 % (0.0-2.0); EOSINOPHIL % 3.1 % (0-5); GRANULOCYTE % 54.7 % (42.2-75.2); HEMATOCRIT 27.5 % (42-52); MEAN CORPUSCULAR HGB 28.4 PG (27.0-31.0); MEAN CORPUSCULAR HGB CONC 33.3 G/DL (33.0-37.0); MEAN CORPUSCULAR VOLUME 85.4 FL (80.0-94.0); MEAN PLATELET VOLUME 7.3 FL (7.4-10.4); PLATELET COUNT 189 /CUMM (130-400); RBC DISTRIBUTION WIDTH 13.8 % (11.5-14.5); RED BLOOD CELL CT 3.22 /CUMM (4.70-6.10); WHITE BLOOD CELL COUNT 4.9 /CUMM (4.8-10.8)
--- NOTE | 2017-10-29 08:05 | Discharge Summary ---
Visit Information Visit Dates Admission Date: 10/28/17 Hospital Course Course Attending Physician: Jemal Medina MD Primary Care Physician: Lamar Sims [facility] Course: This is a pleasant 57-year-old male with past medical history of CAD (s/p CABG in 2013), diabetes, BPH, hyperlipidemia, hypertension who presented to the emergency department on 10/28/2017 complaining of urinary retention, abdominal pain and hematuria. Vitals at the time of presentation: Labs at the time of presentation: Patient was admitted to the Gen. medical service and below is a summary of the care received an rest. Obstructive uropathy Gross Hematuria History of BPH History of diabetes and hyperglycemia on admission Recurrent UTI Diabetic Neuropathy Patient was empirically treated with ceftriaxone IV. On day... Patient's antibiotics were discontinued and patient was followed off antibiotics. CBI was also initiated at the time of presentation. This was kept running until 2017 when the patient underwent a cystoscopy. Copy of this procedure report has been attached to this document. Serial H&H were monitored over the admission. Patient's blood sugar was controlled with Levemir and insulin sliding scale. He was advised to continue his home medication with a follow-up to see the compliance director next week for changing his diabetic coverage. DVT prophylaxis patient was maintain on December. Patient was a full code over the course of the admission. Allergies: Coded Allergies: Penicillins (HIVES 10/28/17) Pertinent Lab Results: HBA1C 9.2 SERVICE DATE: 10/28/17- EXAM TYPE: CAT - CT ABD & PELVIS W/ & W/O IV CO EXAMINATION: CT ABDOMEN AND PELVIS WITHOUT AND WITH CONTRAST CLINICAL INFORMATION: Gross hematuria. Recurrent urinary tract infections. COMPARISON: 07/15/2013 TECHNIQUE: Multidetector volumetric imaging was performed through the abdomen prior to IV contrast. The abdomen and pelvis were then reexamined after the administration of 94 mL Optiray 320 intravenous contrast. Sagittal and coronal reformatted images were obtained on the technologist's workstation. DLP: 647 mGy-cm FINDINGS: LUNG BASES: No acute findings in the visualized lung bases. Atherosclerotic calcification of coronary arteries. No pericardial or pleural effusion. LIVER, GALLBLADDER, AND BILIARY TREE: Unremarkable. PANCREAS: Unremarkable. SPLEEN: Spleen is normal in size. There is focal retraction of the posterior capsule at the site of prior splenic infarction. ADRENAL GLANDS: Unremarkable. KIDNEYS AND URETERS: Kidneys are normal in size. There are two clustered, 0.2 cm calyceal stones within the lower pole of the right kidney. There are two clustered 0.2 and 0.3 cm calyceal stones in the interpolar region of the left kidney. Clustered calculi are seen in the left lower pole, in this area measuring approximately 0.6 cm. No evidence of ureterolithiasis or hydroureteronephrosis. There is symmetric contrast excretion into the collecting systems. There is no abnormal urothelial thickening of either ureter. Small, 1.2 cm simple cortical cyst in the medial aspect of the upper pole of the right kidney is unchanged compared to 07/15/2013. Also, there is an old, small 0.6 cm cortical cyst at the upper pole of the left kidney. No solid renal mass. BLADDER: The urinary bladder wall is chronically thickened. The bladder is decompressed by a Kaur catheter. There is perivesical fat stranding -- likely from cystitis. The irregular, curvilinear filling defect within the bladder lumen likely represents clot. GASTROINTESTINAL TRACT: Stomach is grossly unremarkable. Bowel loops are normal in caliber. The appendix is normal. No evidence of inflammation or obstruction along the gastrointestinal tract. There are scattered colonic diverticula without diverticulitis. No ascites or pneumoperitoneum. ABDOMINAL WALL: Unremarkable. LYMPH NODES: No pathologic sized lymph nodes in the abdomen or pelvis. VASCULAR: Mild atherosclerosis of the abdominal aorta without aneurysm. PELVIC VISCERA: Prostate gland is normal in size. OSSEOUS STRUCTURES: No suspicious bone lesions. At L5-S1, there is mild loss of disc height, apparent broad posterior disc protrusion and vacuum disc phenomenon. IMPRESSION: 1. Bilateral nephrolithiasis without ureterolithiasis or hydronephrosis. 2. Diffuse thickening of the bladder wall, perivesical fat stranding and probable clot in the bladder lumen. These findings are consistent with cystitis. 3. No evidence of pyelonephritis. DICTATED BY: Ziyad Gray MD Disposition Summary Disposition Principal Diagnosis: Obstructive Uropathy Additional Diagnosis: Gross Hematuria History of BPH History of diabetes and hyperglycemia on admission Recurrent UTI Diabetic Neuropathy Discharge Disposition: home or self care Discharge Instructions General Discharge Information Code Status: Full Code Patient's Diet: Heart Healthy Patient's Activity: As Tolerated Follow-Up Instructions/Appts: Please follow-up with the primary care physician within 7 days. Please follow- up with the urologist within 7 days. Please follow-up with the compliance director next week. Medications at Discharge Discharge Medications: Continue taking these medications: Finasteride (Finasteride) 5 MG TABLET 1 Tablet ORAL DAILY Qty = 30 Gabapentin (Gabapentin) 300 MG CAPSULE 1 Capsule ORAL TWICE DAILY Qty = 60 Tamsulosin HCl (Flomax) 0.4 MG CAP.ER.24H 1 Capsule ORAL DAILY Qty = 30 Metformin HCl (Glucophage) 1,000 MG TABLET 1 Tablet ORAL DAILY Metoprolol Succ XL (Toprol Xl) 50 MG TAB 1 Tablet ORAL DAILY Sitagliptin Phosphate (Januvia) 100 MG TABLET 1 Tablet ORAL DAILY Atorvastatin Calcium (Lipitor) 80 MG TABLET 1 Tablet ORAL DAILY Aspirin (Ecotrin*) 81 MG TABLET.DR 1 Tablet ORAL DAILY [place]-3/Dha/Epa/Fish Oil (Fish Oil 1,000 MG Softgel) 250 MG-500 MG-1,000 MG CAPSULE 1 SGL ORAL DAILY Insulin Lispro (Humalog Kwikpen U-100) (Unknown Strength) INSULN.PEN Unknown Dose Inject into fatty tissue 3 TIMES DAILY BEFORE MEALS Qty = 12 Start taking the following new medications: Ciprofloxacin HCl (Ciprofloxacin HCl) 500 MG TABLET 1 Tablet ORAL TWICE DAILY Qty = 4 No Refills Copies To: Norma ALVES,Norma; Miki ALVES,Jayro [place]; Jac CADET,Lamar Robles; Prabhakar ALVES,Luis
[2017-10-29 08:37] LABS: PT 11.9 SEC (9.4-12.5); PTT 27 SEC (25-37)
[2017-10-29 10:05] VITALS: BP 130/70
[2017-10-29 14:47] VITALS: BP 128/80
--- NOTE | 2017-10-29 16:06 | Cons- Endocrinology ---
General Information and HPI Consulting Request Date of Consult: 10/29/17 Requested By: medical team Reason for Consult: management of uncontrolled DM type 2 Source of Information: patient, old records Exam Limitations: no limitations History of Present Illness: 57-year-old male with past medical history significant for CAD s/p CABG, diabetes type 2 diagnosed in 1992 and he has been on insulin since 2013, BPH/ Urinary rentention in 2013 requiring a suprapubic tube, hyperlipidemia, hypertension who was admitted on 10/28/2017 for urinary retention, abdominal pain and hematuria. Now he is receiving bladder irrigation. Cystoscopy has been scheduled for tomorrow. He was on Lantus 25 units daily, Humalog on an average 14 units before meal, metformin 1000 mg daily and Januvia 100 mg daily at home. His HbA1c was 9.3% in 10/2017. In hospital, he was put on Levemir 12 units twice a day, Novolog coverage before meals. His FSGs were 165, 243, 195 and 194. After midnight, he will be kept NPO. Levemir 6 units at bedtime was ordered for tonight. In addition, he will be on RISS coverage every 6 hours while he is kept NPO. Allergies/Medications Allergies: Coded Allergies: Penicillins (HIVES 10/28/17) Home Med List: Aspirin (Ecotrin*) 81 MG TABLET.DR 1 TAB PO DAILY HEART/BLOOD (Reported) Atorvastatin Calcium (Lipitor) 80 MG TABLET 1 TAB PO DAILY CHOLESTEROL ( Reported) Finasteride 5 MG TABLET 1 TAB PO DAILY PROSTATE (Reported) Gabapentin 300 MG CAPSULE 1 CAP PO BID NERVE PAIN (Reported) Insulin Glargine,Hum.rec.anlog (Lantus Solostar) 100 UNIT/ML (3 ML) INSULN.PEN 25 UNIT SC QHS DM (Reported) Insulin Lispro (Humalog Kwikpen U-100) (Unknown Strength) INSULN.PEN (Unknown Dose) SC TIDAC DIABETES (Reported) Metformin HCl (Glucophage) 1,000 MG TABLET 1 TAB PO DAILY DM (Reported) Metoprolol Succ XL (Toprol Xl) 50 MG TAB 1 TAB PO DAILY HEART (Reported) [place]-3/Dha/Epa/Fish Oil (Fish Oil 1,000 MG Softgel) 250 MG-500 MG-1,000 MG CAPSULE 1 SGL PO DAILY SUPPLEMENT (Reported) Sitagliptin Phosphate (Januvia) 100 MG TABLET 1 TAB PO DAILY DM (Reported) Tamsulosin HCl (Flomax) 0.4 MG CAP.ER.24H 1 CAP PO DAILY PROSTATE (Reported) Review of Systems Review of Systems Constitutional: Reports: see HPI. Cardiovascular: Denies: chest pain. Respiratory: Denies: short of breath. GI: Denies: diarrhea, nausea. Genitourinary: Reports: see HPI, dysuria, hematuria. Hematologic/Endocrine: Reports: see HPI. 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 Home Who Do You Live With? self Services at Home: None Primary Language: Citizen Of [place] Smoking Status: Never Smoked ETOH Use: denies use Illicit Drug Use: denies illicit drug use Functional Ability ADLs Independent: dressing, eating, toileting, bathing. Ambulation: independent IADLs Independent: shopping, housework, finances, food prep, telephone, transportation , medication admin. 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 Exam & Diagnostic Data Last 24 Hrs of Vital Signs/I&O Vital Signs Date Time Temp Pulse Resp B/P B/P Pulse O2 O2 Flow FiO2 Mean Ox Delivery Rate 10/29 1447 98.1 85 19 128/80 96 Room Air 10/29 1005 98.5 84 18 130/70 98 Room Air 10/29 0722 98.1 77 18 110/64 96 10/29 0000 Room Air 10/28 2109 98.4 90 18 130/72 95 Room Air 10/28 1726 98.2 97 17 108/58 97 Room Air 10/28 1714 73 108/58 Intake & Output 10/29 1600 10/29 0800 10/29 0000 Intake Total 942 397 9177 Output Total 1900 1300 Balance 630 -1295 220 Intake, IV 150 605 600 Intake, Oral 480 0 920 Number 0 0 Bowel Movements Output, Urine 1900 1300 Physical Exam General Appearance: no apparent distress Neck: normal inspection Respiratory: lungs clear Cardiovascular: regular rate/rhythm Gastrointestinal: soft, non-tender Extremities: no edema Labs/Az Results: Laboratory Tests 10/29 10/28 0713 2330 Chemistry Sodium (137 - 145 mmol/L) 143 141 Potassium (3.5 - 5.1 mmol/L) 4.3 4.3 Chloride (98 - 107 mmol/L) 109 H 108 H Carbon Dioxide (22 - 30 mmol/L) 27 25 Anion Gap (5 - 16) 7 8 BUN (9 - 20 mg/dL) 20 26 H Creatinine (0.7 - 1.2 mg/dL) 0.8 0.9 Estimated GFR (>60 ml/min) > 60 > 60 BUN/Creatinine Ratio (7 - 25 %) 25.0 28.9 H Coagulation PT (9.4 - 12.5 SEC) 11.9 INR (0.90 - 1.17) 1.09 APTT (25 - 37 SEC) 27 Hematology CBC w Diff NO MAN DIFF REQ NO MAN DIFF REQ WBC (4.8 - 10.8 /CUMM) 4.9 5.8 RBC (4.70 - 6.10 /CUMM) 3.22 L 3.15 L Hgb (14.0 - 18.0 G/DL) 9.2 L 9.1 L Hct (42 - 52 %) 27.5 L 26.6 L MCV (80.0 - 94.0 FL) 85.4 84.4 MCH (27.0 - 31.0 PG) 28.4 28.8 MCHC (33.0 - 37.0 G/DL) 33.3 34.1 RDW (11.5 - 14.5 %) 13.8 13.8 Plt Count (130 - 400 /CUMM) 189 198 MPV (7.4 - 10.4 FL) 7.3 L 7.4 Gran % (42.2 - 75.2 %) 54.7 55.5 Lymphocytes % (20.5 - 51.1 %) 31.3 31.8 Monocytes % (1.7 - 9.3 %) 10.5 H 10.2 H Eosinophils % (0 - 5 %) 3.1 2.1 Basophils % (0.0 - 2.0 %) 0.4 0.4 Absolute Granulocytes (1.4 - 6.5 /CUMM) 2.7 3.2 Absolute Lymphocytes (1.2 - 3.4 /CUMM) 1.5 1.9 Absolute Monocytes (0.10 - 0.60 /CUMM) 0.5 0.6 Absolute Eosinophils (0.0 - 0.7 /CUMM) 0.2 0.1 Absolute Basophils (0.0 - 0.2 /CUMM) 0 0 Assessment/Plan Assessment/Plan 57-year-old male with past medical history significant for CAD s/p CABG, diabetes type 2 with recent HbA1c of 9.3%, BPH/ Urinary rentention , hyperlipidemia, hypertension who was admitted on 10/28/2017 for urinary retention , abdominal pain and hematuria. Now he is receiving bladder irrigation. Cystoscopy has been scheduled for tomorrow. After midnight, he will be kept NPO. DM management: 1. agree with holding off on metformin and Januvia; 2. adjust Novolog coverage before meals FSGs 80-150, 4 units 151-200, 6 units 201-250, 8 units 251-300, 10 units 301-350, 12 units 351-400, 14 units > 400, 14 units 3. Levemir will be 10 units x1 tonight at bedtime; 4. after 10 pm, he will be on Novolog coverage every 4 hours while he is NPO FSGs 200-250, 2 units 251-300, 4 units 301-350, 6 units 351-400, 8 units > 400, 10 units 5. monitor FSGs. will follow. Consult Acknowledgment - Thank you for your consult request.
[2017-10-29 21:33] VITALS: BP 140/82
[2017-10-30 06:55] VITALS: BP 120/72
--- NOTE | 2017-10-30 07:21 | PN- Housestaff ---
See Addendum Subjective Follow-up For: Urinary retention Subjective: Mr Butcher was seen and examined this morning. He is resting comfortably on the chair beside his bed. Denies any issues overnight. States that he has developed some mild back pain as result of the inactivity. He does states that says he is able to walk every hour on the floor. Denies any issues overnight. CBI is ongoing. Currently nothing by mouth for cystoscopy scheduled for later today. Denies any fever, chills, nausea, vomiting. Review of Systems Constitutional: Reports: see HPI. Objective Last 24 Hrs of Vital Signs/I&O Vital Signs Date Time Temp Pulse Resp B/P B/P Pulse O2 O2 Flow FiO2 Mean Ox Delivery Rate 10/30 0655 98.0 72 19 120/72 97 10/29 2133 98.3 81 18 140/82 98 10/29 1447 98.1 85 19 128/80 96 Room Air 10/29 1005 98.5 84 18 130/70 98 Room Air Intake & Output 10/30 0800 10/30 0000 10/29 1600 Intake Total 235 970 2404 Output Total 1000 600 Balance 400 -490 540 Intake, IV 400 10 160 Intake, Oral 500 980 Number 0 Bowel Movements Output, Urine 1000 600 Physical Exam General Appearance: Alert, Oriented X3, Cooperative HEENT: Mucous Membr. moist/pink Cardiovascular: Normal S1, Normal S2, No Murmurs Lungs: Clear to Auscultation, Normal Air Movement Abdomen: Normal Bowel Sounds, Soft, No Tenderness Neurological: Strength at 5/5 X4 Ext, Normal Tone, Sensation Intact, Cranial Nerves 3-12 NL Extremities: No Cyanosis, No Edema, Normal Pulses Vascular: Normal Pulses Current Medications: Current Medications Sig/Emily Start time Last Medication Dose Route Stop Time Status Admin Acetaminophen 650 MG ONCE ONE 10/29 1530 DC 10/29 PO 10/29 1531 1800 Atorvastatin Calcium 80 MG 1700 10/28 1700 AC 10/29 PO 1736 Ceftriaxone Sodium 1,000 MG DAILY 10/29 0900 AC 10/29 IV 1007 Dextrose/Sodium 1,000 ML Q20H 10/30 0000 AC 10/30 Chloride IV 0009 Finasteride 5 MG DAILY 10/28 1536 AC 10/29 PO 1006 Gabapentin 300 MG BID 10/28 0900 AC 10/29 PO 2031 Insulin Aspart 0 Q4 10/29 2200 AC 10/30 SC 0624 Insulin Aspart 0 TIDAC 10/29 1700 DC 10/29 CA 10/29 2100 1736 Insulin Aspart 1 UNITS .STK-MED ONE 10/29 1336 DC CA 10/29 1337 Insulin Aspart 0 AT BEDTIME 10/28 2100 DC SC Insulin Aspart 0 TIDAC 10/28 1200 DC 10/29 CA 10/31 1000 1211 Insulin Detemir 6 UNITS ONCE ONE 10/30 1999 DC CA 10/29 2000 Insulin Detemir 10 UNITS ONCE ONE 10/30 1999 DC 10/29 CA 10/29 Insulin Detemir 12 UNITS BID 10/28 0900 DC 10/29 SC 1007 Insulin Human Regular 0 Q6 10/29 2359 CAN SC Metoprolol Succinate 50 MG DAILY 10/28 0900 AC 10/29 PO 1006 Patient Medication 1 ED ONE ONE 10/29 1700 DC Teaching ED 10/29 1701 Tamsulosin HCl 0.4 MG DAILY 10/28 1537 AC 10/29 PO 1006 Last 24 Hrs of Lab/Az Results Last 24 Hrs of Labs/Mics: Laboratory Tests 10/30/17 0652: Sodium Pending, Potassium Pending, Chloride Pending, Carbon Dioxide Pending, Anion Gap Pending, BUN Pending, Creatinine Pending, BUN/Creatinine Ratio Pending , CBC w Diff Pending, WBC Pending, RBC Pending, Hgb Pending, Hct Pending, MCV Pending, MCH Pending, MCHC Pending, RDW Pending, Plt Count Pending, MPV Pending Assessment/Plan Assessment: This is a pleasant 57-year-old male with past medical history of CAD (s/p CABG in 2013), diabetes, BPH, hyperlipidemia, hypertension who presented to the emergency department on 10/28/2017 complaining of urinary retention, abdominal pain and hematuria. His symptoms are likley attributed to worsening BPH, but will need to be investigated further. Obstructive uropathy Gross Hematuria Query other causes vs UTI History of BPH History of diabetes and hyperglycemia on admission Recurrent UTI Diabetic Neuropathy Back Pain Continue patient on general medicine H&H Q 24 hours. Continue CBI for now, can slow rate, may consider discontinuing after cystoscopy. Currently NPO for cystoscopy, based on OR time. Continue ceftriaxone for now. 1000 mg Q 24 hours. May consider following patient off antibiotics after procedure. He has been afebrile and not had any leukocytosis. Initial culture negative for growth after day 1. Monitor ins and outs. Cover the patient with insulin sliding scale. FS, 181, 205, 179. Levemir 24 units daily. 12 BID. We have Obtained a formal endocrinology consultation. Will resume sliding scale and Levemir based on recommendations once the patient is back from his procedure. Hemoglobin A1c: 9.3 Tylenol PO and IV PRN Diet consistent carbohydrate diet. For DVT prophylaxis will maintain the patient on Alps. Patient is a full code. Problem List: 1. Urinary retention Pain Ratin Pain Location: Back Pain Pain Goal: Remain pain free Pain Plan: Tylenol PRN Tomorrow's Labs & Rationales: No Labs - Pending Discharge.
[2017-10-30 08:13] LABS: ABSOLUTE BASOPHIL COUNT 0 /CUMM (0.0-0.2); ABSOLUTE EOSINOPHIL COUNT 0.2 /CUMM (0.0-0.7); ABSOLUTE GRANULOCYTE CT 2.7 /CUMM (1.4-6.5); ABSOLUTE LYMPH COUNT 1.8 /CUMM (1.2-3.4); ABSOLUTE MONOCYTE COUNT 0.4 /CUMM (0.10-0.60); BASOPHIL % 0.4 % (0.0-2.0); EOSINOPHIL % 3.2 % (0-5); HEMATOCRIT 29.1 % (42-52); MEAN CORPUSCULAR HGB 28.8 PG (27.0-31.0); MEAN CORPUSCULAR VOLUME 84.9 FL (80.0-94.0); MEAN PLATELET VOLUME 7.7 FL (7.4-10.4); PLATELET COUNT 196 /CUMM (130-400); RBC DISTRIBUTION WIDTH 13.8 % (11.5-14.5); RED BLOOD CELL CT 3.43 /CUMM (4.70-6.10); WHITE BLOOD CELL COUNT 5.1 /CUMM (4.8-10.8)
--- NOTE | 2017-10-30 09:40 | PN- Diabetes ---
Assessment/Plan Diabetes Assessment: 57-year-old male with past medical history significant for CAD s/p CABG, diabetes type 2 with recent HbA1c of 9.3%, BPH/ Urinary rentention , hyperlipidemia, hypertension who was admitted on 10/28/2017 for urinary retention , abdominal pain and hematuria. Cystoscopy has been scheduled for today. Since midnight, he has been kept NPO and has been on D5NS at 50 ml/hour. He received Levemir 10 units at bedtime last night and has been on Novolog coverage every 4 hours. His FSGs were 211, 171, 181, 205 and 179. Plan: 1. while he is kept NPO and is receiving D5NS at 50 ml/hour, he will be on Novolog coverage every 4 hours 151-200, 2 units 201-250, 4 units 251-300, 6 units 301-350, 8 units 351-400, 10 units > 400, 12 units 2. after he is back from the procedure and when he is ready to eat meals, he will be on ---Levemir 15 units twice a day; ---Novolog coverage before meals FSGs 80-150, 6 units 151-200, 8 units 201-250, 10 units 251-300, 12 units 301-350, 14 units 351-400, 16 units > 400, 18 units ---Novolog coverage at bedtime FSGs 200-250, 2 units 251-300, 3 units 301-350, 4 units 351-400, 5 units > 400, 6 units 3. monitor FSGs. will follow. Subjective Subjective: He has no special complaints this morning. Objective Last 24 Hrs of Vital Signs/I&O Vital Signs Date Time Temp Pulse Resp B/P B/P Pulse O2 O2 Flow FiO2 Mean Ox Delivery Rate 10/30 0655 98.0 72 19 120/72 97 10/29 2133 98.3 81 18 140/82 98 10/29 1447 98.1 85 19 128/80 96 Room Air 10/29 1005 98.5 84 18 130/70 98 Room Air Intake & Output 10/30 1600 10/30 0800 10/30 0000 Intake Total 400 510 Output Total 1000 Balance 400 -490 Intake, IV 400 10 Intake, Oral 500 Number 0 Bowel Movements Output, Urine 1000 Findings Pertinent Lab/Az Results: Laboratory Tests 10/30 06 Chemistry Sodium (137 - 145 mmol/L) 144 Potassium (3.5 - 5.1 mmol/L) 4.1 Chloride (98 - 107 mmol/L) 105 Carbon Dioxide (22 - 30 mmol/L) 28 Anion Gap (5 - 16) 11 BUN (9 - 20 mg/dL) 19 Creatinine (0.7 - 1.2 mg/dL) 0.9 Estimated GFR (>60 ml/min) > 60 BUN/Creatinine Ratio (7 - 25 %) 21.1 Hematology CBC w Diff NO MAN DIFF REQ WBC (4.8 - 10.8 /CUMM) 5.1 RBC (4.70 - 6.10 /CUMM) 3.43 L Hgb (14.0 - 18.0 G/DL) 9.9 L Hct (42 - 52 %) 29.1 L MCV (80.0 - 94.0 FL) 84.9 MCH (27.0 - 31.0 PG) 28.8 MCHC (33.0 - 37.0 G/DL) 34.0 RDW (11.5 - 14.5 %) 13.8 Plt Count (130 - 400 /CUMM) 196 MPV (7.4 - 10.4 FL) 7.7 Gran % (42.2 - 75.2 %) 53.0 Lymphocytes % (20.5 - 51.1 %) 35.2 Monocytes % (1.7 - 9.3 %) 8.2 Eosinophils % (0 - 5 %) 3.2 Basophils % (0.0 - 2.0 %) 0.4 Absolute Granulocytes (1.4 - 6.5 /CUMM) 2.7 Absolute Lymphocytes (1.2 - 3.4 /CUMM) 1.8 Absolute Monocytes (0.10 - 0.60 /CUMM) 0.4 Absolute Eosinophils (0.0 - 0.7 /CUMM) 0.2 Absolute Basophils (0.0 - 0.2 /CUMM) 0
--- NOTE | 2017-10-30 13:44 | Operative Report ---
Operative/Inv Procedure Report Surgery Date: 10/30/17 Name of Procedure: Cystoscopy, clot evacuation, bladder biopsy and fulguration Pre-Operative Diagnosis: Gross hematuria Post-Operative Diagnosis: Same Estimated Blood Loss: less than 50ml Surgeon/Boat Buffer Plastic: Jayro Livingston MD Anesthesia: laryngeal mask airway Drains: 20 Egyptian three-way Kaur catheter for continuous bladder irrigation Specimens: Bladder biopsies Complications: None Condition: Stable Operative Indication: This patient has had intermittent gross hematuria for about 1 month. The in office urine culture was positive for yeast and he was treated for this with Diflucan. He developed significant hematuria with urinary clot retention and presented to the emergency room. A three-way Kaur catheter was placed and some clots irrigated from the bladder. Continuous bladder irrigation was begun. CT of the abdomen and pelvis showed essentially normal upper urinary tracts with the exception of some small calyceal stones. The bladder appeared to have a filling defect and was unclear as to whether this was blood clot or bladder mass. He is now scheduled for cystoscopy to evaluate the bladder and fulguration of bleeders. Of note his initial urinalysis was consistent with infection however his urine culture was negative. Operative/Procedure Note Note: The patient was taken to the cystoscopy room and identified. He was placed in supine position on the cystoscopy table. Timeout was executed appropriately with the patient awake. GEN anesthesia was induced via LMA. He was then placed in dorsal lithotomy position. Bimanual rectal exam revealed a mildly enlarged, nonnodular prostate. There were no other abnormal pelvic masses noted. He was prepped and draped in usual fashion for cystoscopy. A surgical pause was executed appropriately. The 22 Egyptian cystoscope sheath was placed into the bladder under direct vision. Anterior urethra was normal. The prostatic urethra was 3 cm in length and had mild prostatic hypertrophy. It did not appear to be causing high-grade bladder outlet obstruction. However upon entering the bladder was noted to be heavily trabeculated which is indicative of obstruction. There were some small blood clots in the bladder which were irrigated out with the Gabriellaik evacuator. Cystoscopy was then performed. The right and left ureteral orifices were normal in location and appearance. The bladder mucosa was raised and erythematous especially on the posterior wall and bladder dome. This was most consistent with an inflammatory picture rather than neoplastic. However was felt that the area should be biopsied to rule out any bladder malignancy. Using the flexible biopsy forceps biopsies were taken of the posterior wall of the bladder, the bladder dome and the right lateral wall. These were the areas that appeared most affected. At this point the bladder was left full and the cystoscope removed. The 26 Egyptian resectoscope sheath was placed into the bladder using the obturator. The working element was inserted and the biopsy sites fulgurated. The erythema on the posterior wall and dome was fulgurated as well in an effort to prevent any future bleeding. At this point no significant bleeding was noted. The bladder was left full and the resectoscope removed. A 20 Egyptian three-way Kaur catheter was inserted and continuous bladder irrigation begun with light pink to clear drainage. Patient tolerated the procedure well and as completion was taken recovery room in stable condition. Findings: Erythematous raised bladder mucosa on the dome and posterior wall, at least partially obstructing prostate Discharge Disposition: PACU
[2017-10-30 16:00] VITALS: BP 110/60
--- NOTE | 2017-10-30 21:24 | PN- Urology ---
Surgical Brief Attending Note Brief Attending Note: Patient underwent cystoscopy today. Bladder appeared abnormal with raised, erythematous mucosa. Most c/w hemorrhagic cystitis but neoplastic process not ruled out. Bladder bx's taken. Plan: 1 Slow CBI tonight 2. Stop CBI at 3 AM if drainage clear 3. Hopeful to remove stephens tomorrow 4. Continue ceftriaxone for now
[2017-10-30 22:26] VITALS: BP 100/60
--- NOTE | 2017-10-31 04:12 | PN- Housestaff ---
Subjective Follow-up For: Hemorrhagic Cystitis Subjective: Mr Butcher was seen and examined this morning. He is resting comfortably in bed. Denies any issues overnight. States he was able to get some rest although has been up since 2 AM and unable to fall back asleep. Endorses some mild back discomfort owing to the fact that he has been in bed for long time. Patient reports pain has responded well to anodyne medications. CBI was turned off this am at 3.00. Dr. Livingston was at bedside this morning and shared plan with the patient for the next 24-48 hours. Review of Systems Constitutional: Reports: see HPI. Objective Last 24 Hrs of Vital Signs/I&O Vital Signs Date Time Temp Pulse Resp B/P B/P Pulse O2 O2 Flow FiO2 Mean Ox Delivery Rate 10/31 0556 98.2 60 18 120/56 97 Room Air 10/30 2226 98.1 68 20 100/60 95 Room Air 10/30 2218 Room Air 10/30 1600 97.1 62 18 110/60 94 Room Air Intake & Output 10/31 1600 10/31 0800 10/31 0000 Intake Total Output Total 1400 250 Balance -1400 -250 Output, Urine 1400 250 Physical Exam General Appearance: Alert, Oriented X3, Cooperative HEENT: Mucous Membr. moist/pink Cardiovascular: Regular Rate, Normal S1, Normal S2 Lungs: Clear to Auscultation, Normal Air Movement Abdomen: Normal Bowel Sounds, Soft, No Tenderness Extremities: No Edema, Normal Pulses, Catherter in Place Current Medications: Current Medications Sig/Emily Start time Last Medication Dose Route Stop Time Status Admin Acetaminophen 650 MG Q4P PRN 10/30 2145 AC 10/30 PO 2139 Atorvastatin Calcium 80 MG 1700 10/30 1700 AC 10/30 PO 1701 Atorvastatin Calcium 80 MG 1700 10/28 1700 DC 10/29 PO 1736 Ceftriaxone Sodium 1,000 MG DAILY 10/31 0900 AC 10/31 IV 0823 Ceftriaxone Sodium 1,000 MG DAILY 10/29 0900 DC 10/30 IV 0840 Dextrose/Sodium 1,000 ML Q20H 10/30 0000 DC 10/30 Chloride IV 0009 Finasteride 5 MG DAILY 10/31 0900 AC 10/31 PO 0822 Finasteride 5 MG DAILY 10/28 1536 DC 10/30 PO 0840 Gabapentin 300 MG BID 10/30 2100 AC 10/31 PO 0822 Gabapentin 300 MG BID 10/28 0900 DC 10/30 PO 0840 Insulin Aspart 0 AT BEDTIME 10/30 2100 AC SC Insulin Aspart 0 Q4 10/30 1800 CAN SC Insulin Aspart 0 TIDAC 10/30 1700 AC 10/30 SC 1701 Insulin Aspart 0 Q4 10/29 2200 DC 10/30 SC 0624 Insulin Detemir 15 UNITS BID 10/30 2100 AC 10/31 SC 0822 Metoprolol Succinate 50 MG DAILY 10/31 0900 AC 10/31 PO 0822 Metoprolol Succinate 50 MG DAILY 10/28 0900 DC 10/30 PO 0840 Patient Medication 1 ED ONE ONE 10/30 1345 DC Teaching ED 10/30 1346 Potassium Chloride 20 MEQ Q13H 10/30 1415 DC Dextrose/Sodium 1,000 ML IV Chloride Potassium Chloride 20 MEQ Q24H 10/30 1400 CAN Dextrose/Water 0 IV Tamsulosin HCl 0.4 MG DAILY 10/31 0900 AC 10/31 PO 0822 Tamsulosin HCl 0.4 MG DAILY 10/28 1537 DC 10/30 PO 0840 Assessment/Plan Assessment: This is a pleasant 57-year-old male with past medical history of CAD (s/p CABG in 2013), diabetes, BPH, hyperlipidemia, hypertension who presented to the emergency department on 10/28/2017 complaining of urinary retention, abdominal pain and hematuria. His symptoms are likley attributed to worsening BPH, but will need to be investigated further. Obstructive uropathy Hemorrhagic cystits History of BPH History of diabetes and hyperglycemia on admission Recurrent UTI Diabetic Neuropathy Back Pain Continue patient on general medicine H&H Q 24 hours. Monitor patient off CBI, however leave catheter in place. Will have a voiding trial on 11/01/2017. If successful may be discharged home with follow-up with urologist as outpatient. Continue ceftriaxone for now (Day 4). 1000 mg Q 24 hours. Initial culture negative for growth after day 2, although UA on admission was + for Nitrite and Leukocyte esterase. Patient will likely be discharged home on ciprofloxacin total day of coverage 7 Monitor ins and outs. Cover the patient with insulin sliding scale. FS,187,230,101,104 Levemir 30 units daily. 15 BID. We have Obtained a formal endocrinology consultation for outpatient regimen. Hemoglobin A1c: 9.3 Tylenol PO and IV PRN Diet consistent carbohydrate diet. For DVT prophylaxis will maintain the patient on Alps. Patient is a full code. Problem List: 1. Urinary retention 2. Hemorrhagic cystitis Pain Ratin Pain Location: Back Pain Goal: Remain pain free Pain Plan: Tylenol PRN Tomorrow's Labs & Rationales: CBC: Monitor H/H in the setting of recent hematuria
[2017-10-31 05:56] VITALS: BP 120/56
--- NOTE | 2017-10-31 08:45 | PN- Att Addend ---
Attending Addendum Attending Brief Note Pt seen and examined. Agree with laura's note. This is a 57-year-old male with a past medical history of diabetes, coronary artery disease, BPH and hyperlipidemia who is here with bilateral nephrolithiasis, cystitis and hematuria. He had a cystoscopy done yesterday. He had CBI that was stopped at 3 AM and this morning although better, his urine is still dark. I discussed the plan of care with the patient and the patient's nurse. As per Dr. Livingston we will continue the Kaur today given that the urine is still dark and will do a trial of voiding in the morning by taking out the Kaur in the morning. We'll keep a watch on his hematuria. Continue the ceftriaxone for now but will have a low threshold to stop it given the negative urine culture. His baby aspirin is on hold while he is having hematuria and will follow-up.
--- NOTE | 2017-10-31 09:26 | PN- Urology ---
Subjective Subjective: No distress Objective Vital Signs and I&Os Vital Signs Date Time Temp Pulse Resp B/P B/P Pulse O2 O2 Flow FiO2 Mean Ox Delivery Rate 10/31 0556 98.2 60 18 120/56 97 Room Air 10/30 2226 98.1 68 20 100/60 95 Room Air 10/30 2218 Room Air 10/30 1600 97.1 62 18 110/60 94 Room Air Intake & Output 10/31 1600 10/31 0800 10/31 0000 10/30 1600 10/30 0800 10/30 0000 Intake Total 400 510 Output Total 8539 055 8826 Balance -1400 -250 400 -490 Intake, IV 400 10 Intake, Oral 500 Number 0 Bowel Movements Output, Urine 2424 052 5933 Abd: soft and non tender Genitalia: 3-way stephens in place. CBI is off. Urine is pink to red Urine culture negtive inspite of initial U/A c/w UTI and cystoscopic findings most c/w cystitis Assessment/Plan Assessment/Plan Imp: 1. Gross hematuria, appears to be due to cystitis 2. s/p cystoscopy, bladder bx and fulgeration of bleeding areas Plan: 1. Leave stephens today 2. In AM will remove stephens for voiding trial if urine is clear. 3. If voids adequately then home tomorrow afternoon on po septra or cipro for 1 week
[2017-10-31] MEDS ORDERED: CIPROFLOXACIN500 M2 PO (09:47)
--- NOTE | 2017-10-31 13:39 | PN- Diabetes ---
Assessment/Plan Diabetes Assessment: 57-year-old male with past medical history significant for CAD s/p CABG, diabetes type 2 with recent HbA1c of 9.3%, BPH/ Urinary rentention , hyperlipidemia, hypertension who was admitted on 10/28/2017 for urinary retention , abdominal pain and hematuria. Currently he is on Levemir 15 units twice a day, Novolog coverage before meals and Novolog coverage at bedtime. His FSGs were 101, 104 and 180. Plan: continue the current insulin regimen for now; monitor FSGs. will follow. Subjective Subjective: He has no special complaints this morning. Objective Last 24 Hrs of Vital Signs/I&O Vital Signs Date Time Temp Pulse Resp B/P B/P Pulse O2 O2 Flow FiO2 Mean Ox Delivery Rate 10/31 0556 98.2 60 18 120/56 97 Room Air 10/30 2226 98.1 68 20 100/60 95 Room Air 10/30 2218 Room Air 10/30 1600 97.1 62 18 110/60 94 Room Air Intake & Output 10/31 1600 10/31 0800 10/31 0000 Intake Total Output Total 1400 250 Balance -1400 -250 Output, Urine 1400 250
[2017-10-31 14:31] VITALS: BP 114/61
[2017-10-31 22:51] VITALS: BP 113/67
[2017-11-01 06:42] VITALS: BP 115/60
--- NOTE | 2017-11-01 08:35 | PN- Urology ---
Subjective Subjective: No distress Objective Vital Signs and I&Os Vital Signs Date Time Temp Pulse Resp B/P B/P Pulse O2 O2 Flow FiO2 Mean Ox Delivery Rate 11/01 0642 98.0 63 20 115/60 95 Room Air 10/31 2251 98.3 72 20 113/67 97 Room Air 10/31 1431 97.8 63 17 114/61 95 Room Air Intake & Output 11/01 1600 11/01 0800 11/01 0000 10/31 1600 10/31 0800 10/31 0000 Intake Total 1700 Output Total 1250 1100 1200 1400 250 Balance -1250 -1100 500 -1400 -250 Intake, IV 0 Intake, Oral 1700 Number 0 Bowel Movements Output, Urine 1250 1100 1200 1400 250 Abd: soft and non tender Genitalia: stephens in place. CBI is off. Urine is clear to light pink Path from bladder bx is pending Assessment/Plan Assessment/Plan Imp: 1. S/p cystoscopy, clot evac, bladder bx and fulgeration due to gross hematuria with urinary clot retention. Appearance of bladder is most c/w cystitis 2. BPH Plan: 1. Stephens removed at 8:30 2. If patient voids adequately, and urine is reasonably clear may discharge home this afternoon on po abx for 1 week. Cipro or bactrim 3. Will f/u path as outpatient 4. Pt to f/u in my office on 11/05/17
[2017-11-01 09:17] LABS: ABSOLUTE BASOPHIL COUNT 0 /CUMM (0.0-0.2); ABSOLUTE EOSINOPHIL COUNT 0.2 /CUMM (0.0-0.7); ABSOLUTE LYMPH COUNT 1.8 /CUMM (1.2-3.4); ABSOLUTE MONOCYTE COUNT 0.4 /CUMM (0.10-0.60); BASOPHIL % 0.4 % (0.0-2.0); EOSINOPHIL % 4.1 % (0-5); GRANULOCYTE % 54.9 % (42.2-75.2); HEMATOCRIT 29.8 % (42-52); MEAN CORPUSCULAR HGB 28.7 PG (27.0-31.0); MEAN CORPUSCULAR HGB CONC 33.6 G/DL (33.0-37.0); MEAN CORPUSCULAR VOLUME 85.3 FL (80.0-94.0); MEAN PLATELET VOLUME 7.8 FL (7.4-10.4); PLATELET COUNT 237 /CUMM (130-400); RBC DISTRIBUTION WIDTH 13.9 % (11.5-14.5); RED BLOOD CELL CT 3.49 /CUMM (4.70-6.10); WHITE BLOOD CELL COUNT 5.5 /CUMM (4.8-10.8)
--- NOTE | 2017-11-01 10:48 | PN- Att Addend ---
Attending Addendum Attending Brief Note Patient seen and examined. He is ambulating all over the unit. Dr. Livingston came early this morning and got the Kaur. He's feeling well and is eager to avoid and go home. On exam MAXIMUM TEMPERATURE is 98, blood pressure is 115/60, pulse is 63 and his breathing at 16-18. He is awake alert oriented, lungs are clear to auscultation bilaterally, heart is S1-S2 regular, abdomen is soft there is no CVA tenderness and no clubbing or edema. White count is 5000 with an H&H that's 10 and 29. Appreciate urology follow-up and the plan is if he voids in the urine is reasonably clear that he will go home on one week of by mouth antibiotics. Patient says he has more than 10 days of ciprofloxacin at home and he'll take the pill twice a day for a week. He clearly understands the need to follow-up with Dr. Livingston on November 05 the office. He will go on his Lantus and his Humalog sliding scale with outpatient endocrinology follow-up as well.
[2017-11-01] MEDS ORDERED: CIPROFLOXACIN500 M2 PO (10:58)
--- NOTE | 2017-11-01 13:01 | PN- Diabetes ---
Assessment/Plan Diabetes Assessment: 57-year-old male with past medical history significant for CAD s/p CABG, diabetes type 2 with recent HbA1c of 9.3%, BPH/ Urinary rentention , hyperlipidemia, hypertension who was admitted on 10/28/2017 for urinary retention , abdominal pain and hematuria. Currently he is on Levemir 15 units twice a day, Novolog coverage before meals and Novolog coverage at bedtime. His FSGs were 180, 138, 111 and 95. Plan: 1. continue the current insulin regimen when he is in hospital; 2. when he is medically ready for discharge, the discharge plan for DM: --- Lantus 15 units tonight as he received Levemir 15 units in the morning in the hospital; ---starting tomorrow, he can receive Lantus 30 units daily; ---Humalog coverage before meals-- same meal coverage as inpatient. ---f/u in office on 11/25/2017. He already has the appointment. Subjective Subjective: He feels well. Objective Last 24 Hrs of Vital Signs/I&O Vital Signs Date Time Temp Pulse Resp B/P B/P Pulse O2 O2 Flow FiO2 Mean Ox Delivery Rate 11/01 0642 98.0 63 20 115/60 95 Room Air 10/31 2251 98.3 72 20 113/67 97 Room Air 10/31 1431 97.8 63 17 114/61 95 Room Air Intake & Output 11/01 1600 11/01 0800 07 0000 Intake Total Output Total 400 1250 1100 Balance -400 -1250 -1100 Output, Urine 400 1250 1100 Findings Pertinent Lab/Az Results: Laboratory Tests 11/01 0808 Hematology CBC w Diff NO MAN DIFF REQ WBC (4.8 - 10.8 /CUMM) 5.5 RBC (4.70 - 6.10 /CUMM) 3.49 L Hgb (14.0 - 18.0 G/DL) 10.0 L Hct (42 - 52 %) 29.8 L MCV (80.0 - 94.0 FL) 85.3 MCH (27.0 - 31.0 PG) 28.7 MCHC (33.0 - 37.0 G/DL) 33.6 RDW (11.5 - 14.5 %) 13.9 Plt Count (130 - 400 /CUMM) 237 MPV (7.4 - 10.4 FL) 7.8 Gran % (42.2 - 75.2 %) 54.9 Lymphocytes % (20.5 - 51.1 %) 32.8 Monocytes % (1.7 - 9.3 %) 7.8 Eosinophils % (0 - 5 %) 4.1 Basophils % (0.0 - 2.0 %) 0.4 Absolute Granulocytes (1.4 - 6.5 /CUMM) 3.0 Absolute Lymphocytes (1.2 - 3.4 /CUMM) 1.8 Absolute Monocytes (0.10 - 0.60 /CUMM) 0.4 Absolute Eosinophils (0.0 - 0.7 /CUMM) 0.2 Absolute Basophils (0.0 - 0.2 /CUMM) 0
== END 2017-11-01 14:43 | DRG 669 ==
LOC: ERH 03:32 → 2NB 06:45 → ERHI 06:45 → ENRESERV 07:57 → ENTRNSPT 08:41 → 2NB 08:52 → EDTRNSPTSTS 08:53 → EDTRNSPT 08:53 → 2NB 09:03 → CMPTRNSPT 09:22 → 2NB 10:14 → ENTRNSPT 10-30 14:07 → EDTRNSPT 10-30 14:15 → EDTRNSPTSTS 10-30 14:15 → CMPTRNSPT 10-30 14:25 → ENPENDDIS 11-01 11:08 → 2NB 11-01 14:43
PROVIDERS: Emergency Medicine; Student in an Organized Health Care Education/Training Program
PROC: 3E1K78Z Irrigation of Genitourinary Tract using Irrigating Substance, Via Natural or Artificial Opening (ICD-10-PCS; 2017-10-28)
PROC: 0TCB8ZZ Extirpation of Matter from Bladder, Via Natural or Artificial Opening Endoscopic (ICD-10-PCS; principal; 2017-10-30)
PROC: 0TBB8ZX Excision of Bladder, Via Natural or Artificial Opening Endoscopic, Diagnostic (ICD-10-PCS; principal; 2017-10-30)
DX: N30.01 Acute cystitis with hematuria (principal); E87.1 Hypo-osmolality and hyponatremia; E11.43 Type 2 diabetes mellitus with diabetic autonomic (poly)neuropathy; E11.40 Type 2 diabetes mellitus with diabetic neuropathy, unspecified; K31.84 Gastroparesis; E11.65 Type 2 diabetes mellitus with hyperglycemia; I25.10 Atherosclerotic heart disease of native coronary artery without angina pectoris; N40.1 Benign prostatic hyperplasia with lower urinary tract symptoms; R33.8 Other retention of urine; E78.5 Hyperlipidemia, unspecified; I10 Essential (primary) hypertension; Z79.4 Long term (current) use of insulin; Z95.1 Presence of aortocoronary bypass graft; Z88.0 Allergy status to penicillin
CPT/HCPCS: 2NSBP; 36415; 74178; 81001; 82436; 87086; 93005; 93010; 96372; 96374; J0131; J0696; J1815; J3480; J7042; Q9965